=== PATIENT | male | born 1940 | race Caucasian/White ===

== ENCOUNTER 2017-09-17 13:04 | Emergency (ER) | payer MEDICARE, OTHER, SELFPAY ==
[2017-09-17 13:05] VITALS: BP 134/80; PULSE 86; RESP 16; TEMP 36.8; O2SAT 97; BMI 27.3
--- NOTE | 2017-09-17 13:19 | RAD_ITS ---
STUDY: X-RAY CHEST REASON FOR EXAM: Male, 77 years old. Left-sided chest pain. TECHNIQUE: Single AP portable view of the chest. COMPARISON: Prior comparison studies are not available for review at this time. FINDINGS: Cardiac monitoring leads are present. The lungs are underexpanded with obscuration of lung bases. Bronchovascular markings are mildly prominent in both lungs. There is no demonstrated pleural abnormality. There is mild cardiac enlargement. Normal mediastinum and nain. Normal visualized pulmonary arteries. There is atherosclerotic calcification of the aortic arch with tortuosity. There are diffuse degenerative changes of the visualized thoracic spine. Normal visualized ribs, clavicles, and shoulders. There is no demonstrated abnormality of the visualized soft tissue structures of the upper abdomen. RAD/Chest 1 View (Portable) IMPRESSION: Mild cardiomegaly. Electronically Signed: Hollie Hirsch MD at 14:15 EST , Service support ,
--- NOTE | 2017-09-17 13:19 | EKG12_ITS ---
Test Reason : CP Blood Pressure : / mmHG Vent. Rate : 076 BPM Atrial Rate : 076 BPM P-R Int : 200 ms QRS Dur : 098 ms QT Int : 356 ms P-R-T Axes : 028 -28 000 degrees QTc Int : 400 ms Normal sinus rhythm Normal ECG Confirmed by GUILLERMO LUCAS, TORIE ([id number]), photograph editor FRANCIA DOTY ([id number]) on 09/20/2017 1:47:05 PM Referred By: TERESITA Confirmed By:TORIE LI MD
[2017-09-17 13:21] VITALS: O2SAT 99
[2017-09-17 13:30] LABS: Absolute Neutrophil Count 8.2 X10^3/uL (2.0-7.7); Basophil# 0.02 X10^3/uL; Basophil% 0.2 % (0-1); Eosinophil# 0.24 X10^3/uL; Eosinophils% 2.2 % (0-5); Hematocrit 38.8 % (40-54); Hemoglobin 13.4 g/dl (13.0-16.5); Lymphocyte % 12.1 % (19-41); Mean Corp Hgb Conc 34.5 g/gl (32-36); Mean Corpuscular Hgb 30.7 pg (27.0-32.0); Mean Platelet Vol. 10.2 fl (6.2-12.0); Monocyte% 8.4 % (0-10); Neutrophil # 8.22 X10^3/uL (2.7-7.7); Neutrophil % 76.6 % (47-70); Platelet Count 156 K/mm3 (150-450); RBC Distribution Width CV 13.4 % (11.6-14.6); Red Blood Count 4.36 M/mm3 (4.6-6.2); White Blood Count 10.7 K/mm3 (4.4-11.0)
[2017-09-17 13:32] LABS: POSITIVE COUNT NO; POSITIVE DIFFERENTIAL NO; POSITIVE MORPHOLOGY NO
[2017-09-17 13:48] LABS: Anion Gap 10 (5-15); BUN 26 mg/dL (7-18); BUN/Creat Ratio 18.4 RATIO (10-20); Chloride 99 mmol/L (98-107); Creatinine, Serum 1.41 mg/dL (0.70-1.30); EST Glomerular Filtration Rate 52 mL/min (>60); Est Glom Filt Rate - Afr Amer 63 mL/min (>60); Estimated Creatinine Clearance 43.87 ml/min; Glucose 114 mg/dL (74-106); Potassium 4.1 mmol/L (3.5-5.1); Sodium Level 137 mmol/L (136-145)
[2017-09-17] MEDS: Aspirin 81 MG TAB.CHEW 324 MG PO (13:58)
[2017-09-17 14:00] VITALS: BP 127/78; PULSE 70; RESP 18; O2SAT 99
--- NOTE | 2017-09-17 14:04 | ED.VISSUMM ---
- ER Visit Summary Date of Service: 09/17/17 Chief Complaint: Chest pain History of Present Illness: The patient is a [address] Zaheer Jeffries III. He reports he has chest pain that began a day and a half ago. It is an intermittent dull pain that is brought on by movement of his head or arm. For example, he states that he had pain today while he was brushing his teeth. It is not brought on by exertion. Is relieved by not moving his head or arm. He denies any associated nausea, vomiting, diaphoresis, or shortness of breath. He denies any recent trauma. No fall, MVA, or change in activity. Physical Examination: Vitals: Stable. Afebrile. General: Well-nourished and well-developed. Head: Normocephalic atraumatic. Neck: Supple, no lymphadenopathy. No JVD. Nontender. Cardiovascular: Regular rate and rhythm. No murmurs. Respiratory: No respiratory distress. Clear to auscultation bilaterally. It is nontender. I am unable to reproduce his pain. Abdominal: Soft, nontender, nondistended, normal bowel sounds. No guarding, rebound, or peritoneal signs. Back: Nontender. Extremities: Nontender, no edema. Skin: Normal color, no rash. Neurologic: Alert and oriented ?3. Cranial nerves II through XII are intact. Normal strength and sensation. Psych: Normal affect. Test Results: EKG is sinus at 76 and unchanged from 2006. Troponin is negative. Chem-7 is more for BUN of 26, creatinine 1.41, glucose 114. CBC is marked for hematocrit of 38.8 and segment neutrophils of 77. Chest x-ray shows cardiomegaly and a poor inspiration. Emergency Department Course and Treatment: Patient was treated with aspirin and is resting comfortably. I had a prolonged discussion with him about the fact that he could have coronary disease given his age, but that I do not feel that is the source of his chest pain today. Feels well and would like to go home. Treatment Plan: Patient will be discharged instructions to follow-up with Dr. Echavarria as soon as possible. Return to the emergency department for any worsening or change in the character of his pain. Disposition: To home in improved and stable condition. Impression: 1. Atypical chest pain. 2. INÉS score of 1. This note was generated with [employer] dictation software. It may contain incorrect words, spelling, and punctuation that were not noted in review of the chart prior to signing ED Disposition - Plan for ED Patient: Disposition: Home or Assisted Living Chief Complaint: Chest Pain Instructions: ED Chest Pain Atypical Unkn Cause Referrals: Zaheer Jeffries III, MD [Primary Care Provider] - 1-2 Days if not improving
[2017-09-17 14:19] VITALS: BP 113/74; PULSE 71; RESP 16; O2SAT 97
== END 2017-09-17 14:19 | disposition home or self-care (01) ==
LOC: ED 13:45
PROVIDERS: Emergency Provider Emergency Medicine; Family Provider Family Medicine; PCP Family Medicine
DX: R07.89 Other chest pain (principal); I10 Essential (primary) hypertension; Z79.82 Long term (current) use of aspirin; Z79.899 Other long term (current) drug therapy
CPT/HCPCS: 71045; 80048; 84484; 85025; 93005; 99285; A4216

== ENCOUNTER 2018-02-02 05:45 | Emergency (ER) | payer MEDICARE, OTHER, SELFPAY ==
[2018-02-02 05:46] VITALS: BP 166/90; PULSE 65; RESP 16; TEMP 36.4; O2SAT 97; BMI 28.9
--- NOTE | 2018-02-02 06:06 | CT_ITS ---
STUDY: CT ABDOMEN AND PELVIS WITHOUT CONTRAST REASON FOR EXAM: Male, 77 years old. Left groin pain RADIATION DOSAGE (If Supplied By Facility): CTDIvol = ( 9.79 ) mGy, DLP = ( 649.22 ) mGycm TECHNIQUE: Transaxial 2.5 mm images were obtained from the dome of the diaphragm to the symphysis pubis without oral contrast, and without intravenous contrast. Sagittal and coronal images were reconstructed. This examination is limited for the evaluation of gastrointestinal, solid organs and vascular structures due to the lack of intravenous and oral contrast. Individualized dose optimization techniques were used for this CT. COMPARISON: None. FINDINGS: Mild hyperinflation of lung bases. The visualized portions of the heart are within normal limits. There is decreased attenuation of the liver consistent with steatosis. Faint low-attenuation right hepatic lobe 1.3 x 1.2 cm not representing a cyst. There are surgical clips in the gallbladder fossa consistent with a prior cholecystectomy. Normal spleen. Mild fat replacement of pancreas gland. Normal bilateral adrenal glands. Left greater than right perirenal stranding and fluid. Bilateral mild renal cortical thinning. Cortical low-attenuation posterior right lower pole 1.8 x 2.2 cm measuring near water density. Exophytic low-attenuation 0.5 cm in the inferior pole is indeterminate. Mild left hydronephrosis with a proximal left ureteral calculus 0.3 cm at the level of L3-4 disc space. Normal remainder of the left ureter. There is a small hiatal hernia. Normal small intestine. There are multiple colonic diverticula consistent with diverticulosis. The appendix is visualized and appears normal. There is diffuse atherosclerotic calcification of the abdominal aorta, without a demonstrated aneurysm. Normal inferior vena cava. Normal retroperitoneum. Normal urinary bladder. There is enlargement of the prostate gland. There are small bilateral inguinal hernia containing adipose tissue. There are diffuse degenerative changes of the visualized spine. Foraminal and spinal canal stenosis L4-5, [address]/Abdomen/Pelvis without Cont IMPRESSION: Mild left hydronephrosis with proximal left ureteral calculus 0.3 cm. Mild renal involution. Right renal cyst, indeterminate low-attenuation right inferior renal pole, this would require ultrasound for verification. Hepatic steatosis. Focal low-attenuation right hepatic lobe is indeterminate. Assessment with ultrasound or contrast enhanced CT recommended with dynamic phase. Cholecystectomy. Prostate enlargement. Bilateral inguinal hernia containing fat. Mild arteriosclerosis, degenerative changes, lung bases hyperinflation, hiatal hernia and fat deposition into the pancreas felt to be chronic changes. Electronically Signed: Delia Whelan MD at 6:48 EDT , Service support ,
[2018-02-02 06:16] LABS: Mucous, Urine 0 SEEN /hpf (<or=2+); Squamous Epithelial Cells - UA 0 SEEN /hpf (0-5)
[2018-02-02] MEDS: Morphine 4 MG/ML Syringe IV ×2 (06:16→06:58)
[2018-02-02] MEDS: Ondansetron 4 MG/2 ML Vial IV (06:16)
[2018-02-02] MEDS: 0.9% Normal Saline 1,000 ML 1000 ML IV (06:16)
[2018-02-02 06:23] LABS: Absolute Lymphocyte Count 1.43 X10^3/ul (0.83-4.51); Absolute Neutrophil Count 8.1 X10^3/uL (2.0-7.7); Basophil# 0.02 X10^3/uL; Basophil% 0.2 % (0-1); Eosinophil# 0.11 X10^3/uL; Eosinophils% 1.1 % (0-5); Hematocrit 38.4 % (40-54); Hemoglobin 13.2 g/dl (13.0-16.5); Lymphocyte # 1.43 X10^3/ul (4.0); Lymphocyte % 13.9 % (19-41); Mean Corp Hgb Conc 34.4 g/gl (32-36); Mean Corpuscular Volume 90.1 fL (80-94); Mean Platelet Vol. 10.3 fl (6.2-12.0); Monocyte# 0.64 X10^3/uL; Monocyte% 6.2 % (0-10); Neutrophil # 8.05 X10^3/uL (2.7-7.7); Neutrophil % 78.3 % (47-70); Platelet Count 153 K/mm3 (150-450); RBC Distribution Width CV 13.7 % (11.6-14.6); RBC Distribution Width SD 44.2 fl (35.1-43.9); Red Blood Count 4.26 M/mm3 (4.6-6.2); White Blood Count 10.3 K/mm3 (4.4-11.0)
[2018-02-02 06:24] LABS: Color, Urine Yellow (Yellow); Glucose, Dipstick Normal (Normal); Ketone-Dipstick Negative (Negative); Leukocyte Esterase-Dipstick 500 /ul (Negative); Nitrite-Dipstick Negative (Negative); Occult Blood-Urine 150 /ul (Negative); Protein-Dipstick 30 mg/dl (Negative); Urine Bilirubin Dipstick 1 mg/dL (Negative); Urine Clarity Sl. Cloudy (Clear); Urine Urobilinogen Normal (Normal)
[2018-02-02 06:25] LABS: POSITIVE COUNT NO; POSITIVE DIFFERENTIAL NO; POSITIVE MORPHOLOGY NO
[2018-02-02 06:30] LABS: Bacteria RARE /hpf (None Seen); Red Blood Cells-Urine 0-5 SEEN /hpf (0-5); White Blood Cells 10-25 SEEN /hpf (0-5)
[2018-02-02 06:35] LABS: Anion Gap 6 (5-15); BUN 23 mg/dL (7-18); BUN/Creat Ratio 14.6 RATIO (10-20); Chloride 105 mmol/L (98-107); Creatinine, Serum 1.57 mg/dL (0.70-1.30); EST Glomerular Filtration Rate 46 mL/min (>60); Est Glom Filt Rate - Afr Amer 55 mL/min (>60); Glucose 110 mg/dL (74-106); Sodium Level 140 mmol/L (136-145)
[2018-02-02] MEDS: Ceftriaxone 1 GM/50 ML BAG IV (06:59)
--- NOTE | 2018-02-02 07:06 | ED.VISSUMM ---
- ER Visit Summary Date of Service: 02/02/18 Chief Complaint: Left groin pain possible kidney stone History of Present Illness: The patient is a 77 M who presents with left groin pain and is concerned it may be related to a kidney stone. He has a history of kidney stones remotely he states is 20 years ago. He began to have left lower abdominal groin pain about 4 hours prior to presentation. His pain is dull. It waxes and wanes. It was initially 8 out of 10. He took tramadol prior to presentation here and had improvement to about 5 out of 10. He denies fevers nausea vomiting diarrhea dysuria frequency urgency. Physical Examination: Afebrile vitals unremarkable Moist mucous membranes Heart regular rate and rhythm Lungs are clear Abdomen soft nondistended he does have left lower quadrant tenderness without guarding without rebound Normal examination Alert Test Results: CBC unremarkable. BMP notable for creatinine 1.57. Urinalysis shows 500 leukocyte esterase 150 blood 10-25 WBCs and rare bacteria. CT of the abdomen and pelvis shows mild left hydronephrosis with a 3 mm proximal left ureteral calculus. Emergency Department Course and Treatment: Patient was treated with IV fluids morphine and Zofran here. Given evidence of infection in his urine he was given IV Rocephin. Patient was discussed with Dr. Rodriguez. Given that the patient has no fever tachycardia leukocytosis or vomiting he did feel the patient could be given oral antibiotics and follow-up as an outpatient. Patient instructed on signs and symptoms to monitor for and specific conditions which should prompt return here to the emergency department for reevaluation. His pain is well controlled at this time. He was given prescriptions for Percocet and Cipro. Patient discharged home in good condition. Treatment Plan: [] Disposition: Discharge Impression: Ureterolithiasis UTI This note was generated with [employer] dictation software. It may contain incorrect words, spelling, and punctuation that were not noted in review of the chart prior to signing ED Disposition - Plan for ED Patient: Chief Complaint: Complaint Referrals: Zaheer Jeffries III, MD [Primary Care Provider] -
--- NOTE | 2018-02-02 07:11 | ED.DEP ---
ED Disposition - Plan for ED Patient: Chief Complaint: Complaint Instructions: ED Stone Renal W Colic, ED UTI Cystitis Male Prescriptions: Oxycodone HCl/Acetaminophen [Percocet 5/325] 1 tab PO Q6H PRN PRN 3 Days #12 tab PRN Reason: Pain Ciprofloxacin [Cipro] 500 mg PO BID #14 tab Referrals: Zaheer Jeffries III, MD [Primary Care Provider] - José Miguel Rodriguez MD [STAFF PHYSICIAN] -
[2018-02-02 07:36] VITALS: BP 128/77; PULSE 69; RESP 15; O2SAT 97
== END 2018-02-02 07:38 | disposition home or self-care (01) ==
LOC: ED 06:28
PROVIDERS: Emergency Provider Emergency Medicine; Family Provider Family Medicine; PCP Family Medicine
DX: N13.2 Hydronephrosis with renal and ureteral calculous obstruction (principal); N39.0 Urinary tract infection, site not specified; I10 Essential (primary) hypertension; Z87.442 Personal history of urinary calculi; Z79.82 Long term (current) use of aspirin; Z79.899 Other long term (current) drug therapy
CPT/HCPCS: 74176; 80048; 81001; 85025; 96361; 96365; 96375; 96376; 99284; J7030; A4216

== ENCOUNTER → 2018-02-03 07:17 | Outpatient (CLI) | payer MEDICARE, OTHER, SELFPAY ==
--- NOTE | 2018-02-03 07:45 | MRI_ITS ---
STUDY: MRI LUMBAR SPINE WITHOUT CONTRAST REASON FOR EXAM: Male, 77 years old. Radiculopathy. LBP, right hip and leg pain, right calf swelling. TECHNIQUE: Standardized fat and water weighted pulse sequences were obtained in the sagittal and axial planes. COMPARISON: None FINDINGS: T12-L1: There is mild disc space narrowing and endplate spondylosis. There is no significant central canal or foraminal stenosis. Normal lumbar lordosis. There is no substantial scoliosis. Normal conus medullaris that terminates at the T12/L1 L1-2: There is mild disc space narrowing and endplate spondylosis. There is a mild disc bulge and facet hypertrophy with mild central canal stenosis. There is minimal bilateral foraminal stenosis. L2-3: There is mild disc space narrowing and endplate spondylosis. There is a mild disc bulge and hypertrophic arthropathy with moderate central canal stenosis. There is minimal right and mild left foraminal stenosis. L3-4: There is minimal disc space narrowing and endplate spondylosis. There is mild disc bulge and hypertrophic facet arthropathy with moderate central stenosis. There is minimal bilateral foraminal stenosis. L4-5: There is severe disc space narrowing and endplate spondylosis. There is a disc osteophyte complex and facet arthropathy with severe central canal stenosis. There is mild right and minimal left foraminal stenosis. L5-S1: There is moderate disc space narrowing and endplate spondylosis. There is a disc osteophyte complex and facet arthropathy with mild central canal stenosis. There is mild right and moderate left foraminal stenosis. Normal visualized sacral ala. Normal visualized paraspinous soft tissue structures. MRI/Spine Lumbar (Routine) IMPRESSION: L2/L3: Moderate central canal stenosis. L3/L4: Moderate central canal stenosis. L4/L5: Severe central canal stenosis. L5/S1: Moderate left foraminal stenosis. Electronically Signed: Bernadette Youngblood MD at 11:06 EDT Tel , Service support ,
== END ==
PROVIDERS: Family Provider Family Medicine; PCP Family Medicine; Visit Provider Nurse Practitioner Family
DX: M54.17 Radiculopathy, lumbosacral region (principal); M46.96 Unspecified inflammatory spondylopathy, lumbar region; M47.816 Spondylosis without myelopathy or radiculopathy, lumbar region; M47.817 Spondylosis without myelopathy or radiculopathy, lumbosacral region; M51.36 Other intervertebral disc degeneration, lumbar region; M54.5 Low back pain
CPT/HCPCS: 72148

== ENCOUNTER → 2018-02-05 13:55 | Outpatient (CLI) | payer MEDICARE, OTHER, SELFPAY ==
--- NOTE | 2018-02-05 13:58 | RAD_ITS ---
STUDY: X-RAY - ABDOMEN/PELVIS REASON FOR EXAM: Male, 77 years old. Left kidney stone. TECHNIQUE: Two AP supine views of the abdomen and pelvis. COMPARISON: CT abdomen and pelvis February 02, 2018. FINDINGS: Non-visualized lung bases. There is an unremarkable bowel gas pattern. There is no demonstrated free abdominal air. The visualized liver, spleen and kidneys are grossly normal in size and morphology. The left ureteral stone seen on CT is not apparent here. Normal soft tissue structures. There are degenerative changes of the visualized lower thoracic spine, the lowermost lumbar facet joints, as well as the bilateral sacroiliac joints. RAD/Abdomen Single View IMPRESSION: 1. Left ureteral stone noted by CT is not apparent on this exam. 2. Nonspecific bowel gas pattern. Electronically Signed: Raimundo Hunter MD at 15:30 EDT , Service support ,
--- NOTE | 2018-02-05 14:39 | EKG12_ITS ---
Test Reason : PREOP Blood Pressure : / mmHG Vent. Rate : 054 BPM Atrial Rate : 054 BPM P-R Int : 192 ms QRS Dur : 086 ms QT Int : 416 ms P-R-T Axes : 032 -37 002 degrees QTc Int : 394 ms Sinus bradycardia Left axis deviation Abnormal ECG Confirmed by GUILLERMO LUCAS, TORIE ([id number]), photo editor FRANCIA DOTY ([id number]) on 02/06/2018 2:15:36 PM Referred By: José Miguel Rodriguez Confirmed By:TORIE LI MD
== END ==
PROVIDERS: Family Provider Family Medicine; PCP Family Medicine; Visit Provider Urology
DX: N20.1 Calculus of ureter (principal)
CPT/HCPCS: 74018; 93005

== ENCOUNTER 2018-02-05 18:52 | Inpatient (IN) | payer MEDICARE, OTHER, SELFPAY ==
[2018-02-05 18:57] VITALS: BP 132/89; PULSE 72; RESP 18; TEMP 36.7; O2SAT 94; BMI 28.2
[2018-02-05] MEDS: 0.9% Normal Saline 1,000 ML 1000 ML IV (19:46)
[2018-02-05] MEDS: Morphine 4 MG/ML Syringe IV (19:46)
[2018-02-05] MEDS: Ondansetron 4 MG/2 ML Vial IV (19:46)
[2018-02-05 19:49] LABS: Bacteria 0 SEEN /hpf (None Seen); Mucous, Urine 0 SEEN /hpf (<or=2+); Red Blood Cells-Urine 0 SEEN /hpf (0-5); Squamous Epithelial Cells - UA 0 SEEN /hpf (0-5); White Blood Cells 0 SEEN /hpf (0-5)
[2018-02-05 19:57] LABS: Absolute Lymphocyte Count 0.97 X10^3/ul (0.83-4.51); Absolute Neutrophil Count 11.6 X10^3/uL (2.0-7.7); Basophil# 0.02 X10^3/uL; Basophil% 0.1 % (0-1); Eosinophil# 0.03 X10^3/uL; Eosinophils% 0.2 % (0-5); Hematocrit 38.5 % (40-54); Hemoglobin 13.1 g/dl (13.0-16.5); Lymphocyte # 0.97 X10^3/ul (4.0); Lymphocyte % 7.3 % (19-41); Mean Corpuscular Hgb 30.8 pg (27.0-32.0); Mean Corpuscular Volume 90.6 fL (80-94); Mean Platelet Vol. 10.3 fl (6.2-12.0); Monocyte# 0.74 X10^3/uL; Monocyte% 5.5 % (0-10); Neutrophil # 11.56 X10^3/uL (2.7-7.7); Neutrophil % 86.7 % (47-70); Platelet Count 159 K/mm3 (150-450); RBC Distribution Width CV 13.7 % (11.6-14.6); RBC Distribution Width SD 44.8 fl (35.1-43.9); Red Blood Count 4.25 M/mm3 (4.6-6.2); White Blood Count 13.4 K/mm3 (4.4-11.0)
[2018-02-05 20:06] LABS: Anion Gap 9 (5-15); BUN 24 mg/dL (7-18); BUN/Creat Ratio 13.9 RATIO (10-20); Calcium,Total 9.7 mg/dL (8.5-10.1); Chloride 99 mmol/L (98-107); Color, Urine Yellow (Yellow); Creatinine, Serum 1.73 mg/dL (0.70-1.30); EST Glomerular Filtration Rate 41 mL/min (>60); Est Glom Filt Rate - Afr Amer 49 mL/min (>60); Estimated Creatinine Clearance 35.76 ml/min; Glucose 126 mg/dL (74-106); Glucose, Dipstick Normal (Normal); Ketone-Dipstick 5 mg/dl (Negative); Leukocyte Esterase-Dipstick Negative /ul (Negative); Nitrite-Dipstick Negative (Negative); Occult Blood-Urine 25 /ul (Negative); Potassium 4.1 mmol/L (3.5-5.1); Protein-Dipstick 15 mg/dl (Negative); Sodium Level 136 mmol/L (136-145); Urine Bilirubin Dipstick Negative (Negative); Urine Clarity Clear (Clear); Urine Urobilinogen Normal (Normal)
[2018-02-05 20:09] LABS: POSITIVE COUNT NO; POSITIVE DIFFERENTIAL NO; POSITIVE MORPHOLOGY NO
--- NOTE | 2018-02-05 21:12 | ED.VISSUMM ---
- ER Visit Summary Date of Service: 02/05/18 Chief Complaint: Flank pain History of Present Illness: The patient is a 77 M who I saw last week and diagnosed with a left-sided kidney stone. He was sent home on analgesics. He did see Dr. Stefania Mosqueda in the office and is scheduled for surgery on Monday if his symptoms are not improving. He states that his symptoms were relatively well controlled with Percocet however his pain has been increasing. Today's pain is uncontrolled and he also had one episode of nonbloody nonbilious emesis. Denies any fevers. Physical Examination: Afebrile vitals are unremarkable Patient does appear uncomfortable Heart regular rate and rhythm Lungs clear Abdomen soft Patient does have some left lower quadrant abdominal tenderness Alert Test Results: Labs notable for white blood cell count 13.4. Creatinine is 1.73. UA shows 25 blood otherwise normal. Emergency Department Course and Treatment: Patient was treated here with IV fluids morphine Zofran. He has had about 50% improvement of the symptoms. Given his uncle controlled symptoms despite Percocet home he was discussed with his urologist and admitted. Treatment Plan: [] Disposition: Admit Impression: Ureterolithiasis This note was generated with [employer] dictation software. It may contain incorrect words, spelling, and punctuation that were not noted in review of the chart prior to signing ED Disposition - Plan for ED Patient: Chief Complaint: Flank Pain
[2018-02-05 21:58] VITALS: BP 156/78; PULSE 67; RESP 16; O2SAT 98
[2018-02-05 22:16] VITALS: BP 163/78; PULSE 71; RESP 16; O2SAT 96
[2018-02-05 22:32] VITALS: BMI 28.0
[2018-02-05 22:33] VITALS: BP 162/78; PULSE 66; RESP 18; TEMP 36.9; O2SAT 98
[2018-02-05 22:50] VITALS: BMI 28.0
[2018-02-05] MEDS: 0.9% Normal Saline 1,000 ML 125 ML IV (23:33)
[2018-02-05] MEDS: Morphine 2 MG/ML Syringe IV (23:43)
[2018-02-06] VITALS (15 sets, daily range): BP systolic 112–180; BP diastolic 60–99; PULSE 61–81; RESP 16–24; TEMP 36.3–38.3; O2SAT 88–99; BMI 28.0
--- NOTE | 2018-02-06 | IMM_PTH ---
PATIENT: [place] LOC: MS2 U#:[id number] AGE/SX: 77/M [place] [facility] [place]: Dr. Tommy Munson MD : 1940 BED: 1 DIS: 02/09/2018 SPEC #: [id number] RECD: 02/07/18 12:44 STATUS: SOUT REQ #: [id number] VASILIY: 02/06/18 00:[address]: José Miguel Rodriguez DEPT: IMMUNOHISTOCHEMISTRY RECD BY: Maryanne Mcpherson ENTERED: 02/07/18 12:45 SP TYPE: IMMUNO OTHR DR: MD Dr. Kevin Cardozo DO Dr. Frank A Cebul III, MD Dr. Juan Miguel Proano, MD Tissues: A - Prostate, NOS Procedures: CK20 (add) PSA (add) PSAP (add) CK7 (initial) Comments: @ Ordering doctor for CK7 edited from to @ by HORACE at 02/07/18 1253 @ Ordering doctor for CK20. edited from to @ by HORACE at 02/07/18 1253 @ Ordering doctor for PSA. edited from to @ by HORACE at 02/07/18 1253 @ Ordering doctor for PSAP. edited from to @ by HORACE at 02/07/18 1253 @ Submitting doctor edited from to @ by HORACE at 02/07/18 1253 PHYSICIAN & INSTIT[facility] [address] [address] SPECIMEN INFORMATION: Tissue Source: A ? Prostate urethra biopsy Clinical Info: Left ureteral calculi Specimen Number: [id number] CPT code: 45101, 44539 x3 METHODOLOGY: Deparaffinized sections of prefer/formalin-fixed tissue or PAP/DQ stained slides are incubated with monoclonal/polyclonal antibodies/oligonucleotide probes. Localization is made via biotin free immunoperoxidase method. Appropriate controls are performed and reacted as expected. Results on target cell population are indicated in the following table: RESULTS: ANTIBODY / CLONE RESULT Block A CK7 (OV-TL12/30) positive, focal CK20 (KS20.8) negative PSA (ER-PR8) positive PSAP (PASE/4LJ) positive These tests were developed and their performance characteristics determined by [facility]. They may not have been cleared or approved by the U.S. Food and Drug Administration. The FDA has determined that such clearance or approval is not necessary. INTERPRETATION: A. Prostate urethra, biopsy: Consistent with benign prostatic glandular tissue. AM:stacie 02/08/18
--- NOTE | 2018-02-06 | MISC_PTH ---
PATIENT: [place] LOC: MS2 U#:[id number] AGE/SX: 77/M [place] [facility] [place]02/06/[address]: Dr. Tommy Munson MD : 1940 BED: 1 DIS: 02/09/2018 SPEC #: [id number] RECD: 02/06/18 14:23 STATUS: BELEN JENNIFER #: [id number] VASILIY: 02/06/18 00:[address]: José Miguel Rodriguez DEPT: SURGICAL PATHOLOGY RECD BY: George Hammonds ENTERED: 02/06/18 14:24 SP TYPE: MISC IGNACIO DR: Dr. Zaheer Jeffries III, MD Tissues: A - Urethra, NOS B - CALCULI Procedures: Surgery Specimen Level I Surgery Specimen Level IV HEADER OPERATION: Cysto, ureteroscopy, retro, extraction of stone, urethral biopsy PRE-OP DIAGNOSIS: Left ureteral calculi TISSUE SUBMITTED: A ? Prostate urethra biopsy, B ? Left urethral stone (stone for analysis) MICROSCOPIC DIAGNOSIS A. Prostate urethra, biopsy: Benign prostatic parenchymal tissue. See comment. B. Left ureteral stone, removal: Unremarkable calculus (gross diagnosis only). AM:stacie 02/07/18 COMMENT A. The specimen contains prostatic glandular parenchymal tissue with focal calcifications. Clinical correlation is suggested. Immunohistochemistry ([id number]) supports the above diagnosis. MICROSCOPIC DESCRIPTION Slides are reviewed. GROSS DESCRIPTION A - Received in fixative is one container labeled with the patient's name and designated prostatic urethral biopsy. The specimen consists of one irregular fragment of light collins soft tissue that measures 0.2 x 0.1 x <0.1 cm. The specimen is totally submitted in one cassette. B - Received without fixative labeled with the patient name and designated left urethral stone is a specimen that consists of an irregular fragment of dark collins calculus measuring 0.5 x 0.2 x 0.2 cm. The specimen is totally submitted for chemical stone analysis. / AM:stacie 02/06/18 TC:5 CPT: 09307, 90968
[2018-02-06] MEDS: Morphine 2 MG/ML Syringe IV ×5 (01:49→20:07)
--- NOTE | 2018-02-06 06:50 | PCM.HP.STD ---
Problem List (1) Left ureteral calculus Status: Acute History of Present Illness Date of Admission: 02/06/18 Chief Complaint: Left ureteral calculi The patient is a 77 year old male who is seen in the office for a small left ureteral calculi we are planning surgery intervention this coming Monday however he came back to the emergency room with severe pain now his pain is under control no more nausea vomiting but he does not want to go home will add him onto the schedule for tomorrow as a add on for left ureteroscopy laser lithotripsy of stone and stent placement Past Medical History Allergies lisinopril Adverse Reaction (Verified 02/05/18 18:56) Other COUGH Sulfa (Sulfonamide Antibiotics) Adverse Reaction (Verified 02/05/18 18:56) Itching Home Medications: Ambulatory Orders Medication Instructions Recorded Aspirin [Aspirin, Baby] 81 mg PO DAILY 09/17/17 Atenolol [Tenormin (Beta Seth)] 50 mg PO DAILY 09/17/17 Hydrochlorothiazide [Hctz] 25 mg PO DAILY 09/17/17 Naproxen 500 mg PO BID PRN PRN 02/02/18 Oxycodone HCl/Acetaminophen 1 tab PO Q6H PRN PRN 3 Days #12 tab 02/02/18 [Percocet 5/325] Terazosin HCl 10 mg PO QHS 02/02/18 Ciprofloxacin [Cipro] 500 mg PO BID 02/05/18 Surgical History: noncontributory Psychiatric History: No pertinent psych hx Lives: Spouse/ Significant Other Smoking Status: Never smoker Tobacco Use: Non-smoker Alcohol: None Drugs: None Review of Systems Constitutional: Denies: Chills, Fever, Weight Change HEENT: Denies: Head Aches, Sinus Congestion, Sinus Drainage Cardiovascular: Denies: Chest Pain, Palpitations Respiratory: Denies: Cough, Shortness of breath at rest, Sputum production Gastrointestinal: Reports: Abdominal Pain. Denies: Nausea, Vomiting Genitourinary: Reports: Hematuria. Denies: Dysuria Musculoskeletal: Denies: Joint Pain, Joint Tenderness Skin: Denies: Rash, Wounds Neurological: Denies: Numbness, Tingling, Focal weakness Psychiatric: Denies: Anxiety, Depression, Homicidal Ideations, Suicidal Ideations Hematologic/ Lymphatic: Denies: Easy Bruising, Easy Bleeding VTE Information - Inpt Only VTE Present on Admission: No VTE Mechan Device Prophylaxis: SCD's Patient Problems: Active and Suspected Problems Left ureteral calculus (Acute) - Physical Exam General: Alert, Oriented x3, Cooperative HEENT: Atraumatic, PERRLA, EOMI, Normocephalic Neck: Supple, No JVD, Negative Carotid Bruits Lungs: Clear to auscultation, Normal air movement Cardiovascular: Regular rate, No murmurs Abdomen: Bowel Sounds Present, Soft, Non Tender Extremities: No edema, Capillary Refill Less than 3 Seconds Skin: No rashes, No breakdown Musculoskeletal: No Tenderness to Palpation of Joints or Extremities Neurological: Cranial nerves II-XII grossly intact Psych/Mental Status: Normal Affect, Appropriate Vital Signs Temp Pulse Resp BP Pulse Ox 98.6 F 61 16 158/71 H 99 02/06/18 04:44 02/06/18 04:44 02/06/18 04:44 02/06/18 04:44 02/06/18 04:44 Oxygen Delivery Method Room Air Weight: 86 kg Body Mass Index (BMI) 28.0 Intake and Output for Last 24 Hours 02/04/18 02/05/18 02/06/18 23:59 23:59 23:59 Intake Total 639 / 639 Output Total 150 / 150 850 / 850 Balance -150 / -150 -211 / -211 Laboratory Tests Past 24 Hrs 02/06/18 06:06 Sodium Pending Potassium Pending Chloride Pending Carbon Dioxide Pending Anion Gap Pending BUN Pending Creatinine Pending Est GFR (MDRD) Af Amer Pending Est GFR (MDRD) Non-Af Pending BUN/Creatinine Ratio Pending Glucose Pending Calcium Pending Assessment/Plan All Active Problems Left ureteral calculus (Acute) 77-year-old male admitted for intractable pain from a kidney stone quite small but has not been able to pass it so regular diet today and a month for the schedule for tomorrow for left ureteroscopy laser lithotripsy of stone and stent placement.
[2018-02-06 07:00] LABS: Anion Gap 7 (5-15); BUN 22 mg/dL (7-18); BUN/Creat Ratio 15.6 RATIO (10-20); Calcium,Total 8.4 mg/dL (8.5-10.1); Chloride 106 mmol/L (98-107); Creatinine, Serum 1.41 mg/dL (0.70-1.30); EST Glomerular Filtration Rate 52 mL/min (>60); Est Glom Filt Rate - Afr Amer 63 mL/min (>60); Estimated Creatinine Clearance 43.87 ml/min; Glucose 97 mg/dL (74-106); Sodium Level 141 mmol/L (136-145)
[2018-02-06] MEDS: 0.9% Normal Saline 1,000 ML 125 ML IV ×3 (07:58→19:04)
[2018-02-06] MEDS: Atenolol 50 MG Tablet PO (09:53)
[2018-02-06] MEDS: Cefazolin 2 GM in 0.9% Normal Saline 100 ML IV (11:12)
--- NOTE | 2018-02-06 11:44 | PCM.OPRPT ---
Problem List (1) Left ureteral calculus Status: Acute Report of Operation Date of Procedure: 02/06/18 Pre-Operative Diagnosis: Left ureteral calculi Post-Operative Diagnosis: Same and urethral polyp Surgery/Procedure Performed:: Cystoscopy, left retrograde pyelogram, balloon dilation of the left ureter, left ureteroscopy extraction of stone, no stent, biopsy of prostatic urethra Polyp. Description of Surgical Findings:: 77-year-old male taken back to the operating room at the smooth induction of general anesthesia he was placed supine on the table, the penis testicles were prepped and draped in usual sterile fashion, went into the bladder with a 21 Lithuanian rigid cystourethroscope, the entire length the urethra is normal sphincter is normal when I got to the verumontanum there was a papillary soft looking polyp on top of the verumontanum difficult to tell this is normal anatomy or pathology so decided to proceed with a biopsy this at the end of the case. I then went into the bladder identified the left ureteral orifice use a Pollack catheter Glidewire advanced a wire up on the left side could feel the wire hit the stone and then I balloon dilated the distal left ureter with a 12 Lithuanian 10 cm balloon dilator, after balloon dilating the distal ureter then I went in with a ureteroscope was able to get past the stone went all the way to the kidney inspected the upper pole midpole lower pole did a retrograde pyelogram no other stones are seen work my way all the way down and then I could see feel the stone as it was along the ureter and then we extracted the stone as I came out with the ureteroscope from the ureter did not have to use the basket, then after extracting the stone and we flushed the stone out of the bladder it was sent off as a specimen I then switched over to the 30 and 70? lens inspected the bladder no tumors or stones are seen within the bladder trigone is normal left and right ureteral orifice normal, I then pulled back into the prostatic urethra did a biopsy of this polyp on top of the verumontanum, and then drain the bladder patient has anesthetic was reversed plan to see the patient back in follow-up in a few weeks to review the biopsy for the verumontanum and the stone analysis. No stent was placed. Type of Anesthesia:: General Drains: none - Admit VTE Documentation VTE Present on Admission: No VTE Mechan Device Prophylaxis: SCD's VTE Pharm Prophylaxis ordered?: No Reason prophylaxis not ordered:: Treatment Not Indicated
[2018-02-06] MEDS: Doxazosin 4 MG Tablet 8 MG PO ×2 (13:33→13:34)
[2018-02-06] MEDS: Aspirin 81 MG TAB.CHEW PO (13:34)
[2018-02-06] MEDS: hydroCHLOROthiazide 25 MG Tablet PO (13:34)
--- NOTE | 2018-02-06 13:50 | CASEMGMT ---
See RN CM Assessment Link. Pt denies use of DME or assistance needs. Is independent, ambulatory. is able to assist with f/u transportation. Plan is for dc home tomorrow. Devora MENDIETA RN ACM
[2018-02-06] MEDS: Lactulose 20 GM/30 ML UDC 10 GM PO (15:14)
--- NOTE | 2018-02-06 16:09 | RAD_ITS ---
STUDY: X-RAY CHEST REASON FOR EXAM: Male, 77 years old. Increased shortness of breath. TECHNIQUE: Single AP portable view of the chest. COMPARISON: September 17, 2017. FINDINGS: The lungs are hypoexpanded. There is patchy infiltrates at both lung bases. There is no demonstrated pleural abnormality. The heart remains mildly enlarged. Normal mediastinum and nain. Is mild central vascular prominence. Normal visualized aortic arch and descending thoracic aorta. The thoracic spine is obscured by the mediastinum. Normal visualized ribs, clavicles, and shoulders. There is no demonstrated abnormality of the visualized soft tissue structures of the upper abdomen. RAD/Chest 1 View (Portable) IMPRESSION: Cardiomegaly with bibasilar infiltrates. Electronically Signed: Jens Linares DO at 20:50 EDT Tel [phone], Service support ,
--- NOTE | 2018-02-06 16:43 | PCM.CONS.GEN ---
Problem List (1) Dyspnea Status: Acute (2) Sepsis Status: Acute (3) UTI (urinary tract infection) Status: Acute Reason for Consult Date of Consultation: 02/06/18 Reason for Consultation: Dyspnea and Rigors History of Present Illness: The patient is a 77 year old M who presents with a kidney stone. Patient had been diagnosed with it on the where he had mild left hydronephrosis with a proximal left ureteral calculus of 0.3 cm. Patient was also found to have a urinary tract infection and discharged with follow-up with Dr. Rodriguez. Patient was not feeling better and presented again on the . Patient was admitted to the urology service and today underwent cystoscopy with left-sided pyelogram and balloon dilation of the left ureter and extraction of stone. Afterwards patient was having [place] and did have dyspnea. The hospitalist service was consulted because of the dyspnea. Patient's oxygen did drop transiently down to 88%. Patient's complaint right now is feeling cold. Patient still does have left flank pain at this time. She has a history of kidney stones which according to the is counting at 8 this time. [] Past Medical History Medical History: Medical History (Last Updated 02/06/18 @ 16:47 by Kevin Martinez DO) Kidney stone N20.0 HTN (hypertension) I10 Allergies lisinopril Adverse Reaction (Verified 02/05/18 18:56) Other COUGH Sulfa (Sulfonamide Antibiotics) Adverse Reaction (Verified 02/05/18 18:56) Itching Home Medications: Ambulatory Orders Medication Instructions Recorded Aspirin [Aspirin, Baby] 81 mg PO DAILY 09/17/17 Atenolol [Tenormin (Beta Seth)] 50 mg PO DAILY 09/17/17 Hydrochlorothiazide [Hctz] 25 mg PO DAILY 09/17/17 Naproxen 500 mg PO BID PRN PRN 02/02/18 Oxycodone HCl/Acetaminophen 1 tab PO Q6H PRN PRN 3 Days #12 tab 02/02/18 [Percocet 5/325] Terazosin HCl 10 mg PO QHS 02/02/18 Ciprofloxacin [Cipro] 500 mg PO BID 02/05/18 Surgical History: noncontributory Psychiatric History: No pertinent psych hx Lives: Spouse/ Significant Other Smoking Status: Never smoker Tobacco Use: Non-smoker Alcohol: None Drugs: None - *Family History Maternal History Items: - - no heart disease Review of Systems Constitutional: Reports: Chills. Denies: Anorexia, Fever Eyes: Denies: Blurred vision, Double vision HEENT: Denies: Head Aches, Sinus Congestion, Sinus Drainage Cardiovascular: Denies: Chest Pain, Palpitations Respiratory: Reports: Cough, Shortness of Breath Gastrointestinal: Reports: Abdominal Pain. Denies: Diarrhea Genitourinary: Denies: Dysuria, Frequency, Hematuria Musculoskeletal: Denies: Joint Pain, Joint Tenderness Skin: Denies: Rash, Wounds Neurological: Denies: Numbness, Tingling, Focal weakness Psychiatric: Denies: Anxiety, Depression Endocrine: Denies: Change in Body Habitus, Heat/ Cold Intolerance Hematologic/ Lymphatic: Denies: Easy Bruising, Easy Bleeding, Hx of blood clot Comment: All review of systems are negative except as mentioned in the history of present illness and the other review of systems. Patient Problems: Active and Suspected Problems Left ureteral calculus (Acute) Dyspnea (Acute) Sepsis (Acute) UTI (urinary tract infection) (Acute) - Physical Exam General: Alert, Cooperative, No apparent distress HEENT: Atraumatic, Normocephalic Neck: No Nodes, Thyroid Normal Size and Texture Lungs: Clear to auscultation, No rhonchi, No wheeze, Diminished Cardiovascular: Regular rate, Regular Rhythm, Normal S1, Normal S2 Abdomen: Bowel Sounds Present, Soft, Non Tender Extremities: No edema, No Calf Tenderness Skin: No rashes, No breakdown Psych/Mental Status: Normal Affect, Appropriate Vital Signs Temp Pulse Resp BP Pulse Ox 36.4 C L 72 24 H 134/99 H 94 02/06/18 15:37 02/06/18 15:37 02/06/18 15:37 02/06/18 15:37 02/06/18 15:37 Oxygen Flow Rate (L/min) 2 Oxygen Delivery Method Nasal Cannula Assessment/Plan All Active Problems Left ureteral calculus (Acute) Dyspnea (Acute) Sepsis (Acute) UTI (urinary tract infection) (Acute) 1. Sepsis Secondary to urinary tract infection. Patient transiently got worse after 3. My feeling is that there may been some bacteria within the stone itself that may have been released with the procedure that may have caused transient worsening of symptoms. I agree with checking the blood cultures to ensure that there is no bacteremia I agree with the IV Cipro. We will adjust antibiotics accordingly based on results of blood cultures. Urine cultures were never performed during this admission nor the previous ER visits. 2. UTI Exacerbated due to the kidney stone Neck in order a urine culture because patient having already been on antibiotic low yield at this point in time. We just continue with the Cipro 3. Left-sided kidney stone Status post extraction by urology Still with left flank pain. Defer management to the urology service 4. Dyspnea Transient hypoxia Currently improved with oxygen Chest x-ray ordered As needed bronchodilators 5. DVT prophylaxis with SCDs Thank you for the consult. The hospitalist service will follow along since hospitalization Code Visit Inpatient E&M: 41118 Init Hosp L2
--- NOTE | 2018-02-06 16:53 | CON.PCM_ITS ---
Problem List (1) Dyspnea Status: Acute (2) Sepsis Status: Acute (3) UTI (urinary tract infection) Status: Acute Reason for Consult Date of Consultation: 02/06/18 Reason for Consultation: Dyspnea and Rigors History of Present Illness: The patient is a 77 year old M who presents with a kidney stone. Patient had been diagnosed with it on the where he had mild left hydronephrosis with a proximal left ureteral calculus of 0.3 cm. Patient was also found to have a urinary tract infection and discharged with follow-up with Dr. Rodriguez. Patient was not feeling better and presented again on the . Patient was admitted to the urology service and today underwent cystoscopy with left-sided pyelogram and balloon dilation of the left ureter and extraction of stone. Afterwards patient was having [place] and did have dyspnea. The hospitalist service was consulted because of the dyspnea. Patient's oxygen did drop transiently down to 88%. Patient's complaint right now is feeling cold. Patient still does have left flank pain at this time. She has a history of kidney stones which according to the is counting at 8 this time. [] Past Medical History Medical History: Medical History (Last Updated 02/06/18 @ 16:47 by Kevin Martinez DO) Kidney stone N20.0 HTN (hypertension) I10 Allergies lisinopril Adverse Reaction (Verified 02/05/18 18:56) Other COUGH Sulfa (Sulfonamide Antibiotics) Adverse Reaction (Verified 02/05/18 18:56) Itching Home Medications: Ambulatory Orders Medication Instructions Recorded Aspirin [Aspirin, Baby] 81 mg PO DAILY 09/17/17 Atenolol [Tenormin (Beta Seth)] 50 mg PO DAILY 09/17/17 Hydrochlorothiazide [Hctz] 25 mg PO DAILY 09/17/17 Naproxen 500 mg PO BID PRN PRN 02/02/18 Oxycodone HCl/Acetaminophen 1 tab PO Q6H PRN PRN 3 Days #12 tab 02/02/18 [Percocet 5/325] Terazosin HCl 10 mg PO QHS 02/02/18 Ciprofloxacin [Cipro] 500 mg PO BID 02/05/18 Surgical History: noncontributory Psychiatric History: No pertinent psych hx Lives: Spouse/ Significant Other Smoking Status: Never smoker Tobacco Use: Non-smoker Alcohol: None Drugs: None - *Family History Maternal History Items: - - no heart disease Review of Systems Constitutional: Reports: Chills. Denies: Anorexia, Fever Eyes: Denies: Blurred vision, Double vision HEENT: Denies: Head Aches, Sinus Congestion, Sinus Drainage Cardiovascular: Denies: Chest Pain, Palpitations Respiratory: Reports: Cough, Shortness of Breath Gastrointestinal: Reports: Abdominal Pain. Denies: Diarrhea Genitourinary: Denies: Dysuria, Frequency, Hematuria Musculoskeletal: Denies: Joint Pain, Joint Tenderness Skin: Denies: Rash, Wounds Neurological: Denies: Numbness, Tingling, Focal weakness Psychiatric: Denies: Anxiety, Depression Endocrine: Denies: Change in Body Habitus, Heat/ Cold Intolerance Hematologic/ Lymphatic: Denies: Easy Bruising, Easy Bleeding, Hx of blood clot Comment: All review of systems are negative except as mentioned in the history of present illness and the other review of systems. Patient Problems: Active and Suspected Problems Left ureteral calculus (Acute) Dyspnea (Acute) Sepsis (Acute) UTI (urinary tract infection) (Acute) - Physical Exam General: Alert, Cooperative, No apparent distress HEENT: Atraumatic, Normocephalic Neck: No Nodes, Thyroid Normal Size and Texture Lungs: Clear to auscultation, No rhonchi, No wheeze, Diminished Cardiovascular: Regular rate, Regular Rhythm, Normal S1, Normal S2 Abdomen: Bowel Sounds Present, Soft, Non Tender Extremities: No edema, No Calf Tenderness Skin: No rashes, No breakdown Psych/Mental Status: Normal Affect, Appropriate Vital Signs Temp Pulse Resp BP Pulse Ox 36.4 C L 72 24 H 134/99 H 94 02/06/18 15:37 02/06/18 15:37 02/06/18 15:37 02/06/18 15:37 02/06/18 15:37 Oxygen Flow Rate (L/min) 2 Oxygen Delivery Method Nasal Cannula Assessment/Plan All Active Problems Left ureteral calculus (Acute) Dyspnea (Acute) Sepsis (Acute) UTI (urinary tract infection) (Acute) 1. Sepsis * Secondary to urinary tract infection. Patient transiently got worse after 3. My feeling is that there may been some bacteria within the stone itself that may have been released with the procedure that may have caused transient worsening of symptoms. * I agree with checking the blood cultures to ensure that there is no bacteremia * I agree with the IV Cipro. We will adjust antibiotics accordingly based on results of blood cultures. Urine cultures were never performed during this admission nor the previous ER visits. 2. UTI * Exacerbated due to the kidney stone * Neck in order a urine culture because patient having already been on antibiotic low yield at this point in time. * We just continue with the Cipro 3. Left-sided kidney stone * Status post extraction by urology * Still with left flank pain. * Defer management to the urology service 4. Dyspnea * Transient hypoxia * Currently improved with oxygen * Chest x-ray ordered * As needed bronchodilators 5. DVT prophylaxis with SCDs Thank you for the consult. The hospitalist service will follow along since hospitalization Code Visit Inpatient E&M: 26780 Init Hosp L2
[2018-02-06 17:59] LABS: Anion Gap 7 (5-15); BUN 23 mg/dL (7-18); BUN/Creat Ratio 13.9 RATIO (10-20); Calcium,Total 8.1 mg/dL (8.5-10.1); Chloride 108 mmol/L (98-107); Creatinine, Serum 1.65 mg/dL (0.70-1.30); EST Glomerular Filtration Rate 43 mL/min (>60); Est Glom Filt Rate - Afr Amer 52 mL/min (>60); Estimated Creatinine Clearance 37.49 ml/min; Glucose 133 mg/dL (74-106); Potassium 4.1 mmol/L (3.5-5.1); Sodium Level 141 mmol/L (136-145)
[2018-02-06 18:06] LABS: Absolute Lymphocyte Count 0.31 X10^3/ul (0.83-4.51); Absolute Neutrophil Count 6.6 X10^3/uL (2.0-7.7); Differential Indicated SCAN CRITERIA MET; Hematocrit 35.6 % (40-54); Hemoglobin 12.1 g/dl (13.0-16.5); Lymphocyte # 0.31 X10^3/ul (4.0); Lymphocyte % 4.2 % (19-41); Mean Corpuscular Hgb 31.4 pg (27.0-32.0); Mean Corpuscular Volume 92.5 fL (80-94); Mean Platelet Vol. 10.5 fl (6.2-12.0); Monocyte# 0.44 X10^3/uL; Neutrophil # 6.58 X10^3/uL (2.7-7.7); Neutrophil % 89.7 % (47-70); POSITIVE COUNT NO; POSITIVE DIFFERENTIAL YES; POSITIVE MORPHOLOGY NO; Platelet Count 134 K/mm3 (150-450); RBC Distribution Width CV 13.5 % (11.6-14.6); RBC Distribution Width SD 45.1 fl (35.1-43.9); Red Blood Count 3.85 M/mm3 (4.6-6.2); White Blood Count 7.3 K/mm3 (4.4-11.0)
[2018-02-06] MEDS: Ceftriaxone 1 GM/50 ML BAG IV (18:33)
[2018-02-06 18:44] LABS: Anisocytosis RARE; Macrocytosis RARE; Platelet Estimate SLT DEC (ADEQ)
--- NOTE | 2018-02-07 03:13 | NURSING ---
This RN bladder scanned patient after voiding, patient voided 50mls and PVR was 40mls.
[2018-02-07 03:15] VITALS: BP 126/70; PULSE 75; RESP 18; TEMP 36.8; O2SAT 95
[2018-02-07] MEDS: 0.9% Normal Saline 1,000 ML 125 ML IV ×3 (03:17→21:30)
[2018-02-07] MEDS: Morphine 2 MG/ML Syringe IV ×3 (03:17→16:29)
--- NOTE | 2018-02-07 04:18 | NURSING ---
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
[2018-02-07 07:22] LABS: Anion Gap 7 (5-15); BUN 30 mg/dL (7-18); BUN/Creat Ratio 13.6 RATIO (10-20); Calcium,Total 8.2 mg/dL (8.5-10.1); Chloride 106 mmol/L (98-107); Creatinine, Serum 2.21 mg/dL (0.70-1.30); EST Glomerular Filtration Rate 31 mL/min (>60); Est Glom Filt Rate - Afr Amer 37 mL/min (>60); Estimated Creatinine Clearance 27.99 ml/min; Glucose 124 mg/dL (74-106); Potassium 4.2 mmol/L (3.5-5.1); Sodium Level 141 mmol/L (136-145)
--- NOTE | 2018-02-07 07:36 | PCM.PN.HOSP ---
Patient Problems: Active and Suspected Problems (Last Updated 02/06/18 @ 16:47 by Kevin Martinez DO) Left ureteral calculus (Acute) Dyspnea (Acute) Sepsis (Acute) UTI (urinary tract infection) (Acute) Subjective: Patient is a 77 year old gentleman admitted with sepsis secondary to complicated UTI. Patient did develop shortness of breath chest x-ray demonstrated bilateral infiltrates as well as cardiomegaly. CT of the chest without contrast as well as echo ordered as part of patient's evaluation Objective: GENERAL: cooperative. HEENT: Clear conjunctiva, moist oral mucosa NECK; supple, normal thyroid, no distended JVD. CHEST: Diminished to auscultation bilaterally, HEART: Regular S1 S2, no audible murmurs ABDOMEN: soft, non-tender, normoactive bowel sounds, RECTAL: deferred EXTREMITIES: No edema, no clubbing, no cyanosis. 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 SKIN: No Rash Vitals/I&O's: Vital Signs Temp Pulse Resp BP Pulse Ox 98.3 F 75 18 126/70 H 95 02/07/18 03:15 02/07/18 03:15 02/07/18 03:15 02/07/18 03:15 02/07/18 03:15 Oxygen Flow Rate (L/min) 2 Oxygen Delivery Method Nasal Cannula Intake and Output for Last 24 Hours 02/05/18 02/06/18 02/07/18 23:59 23:59 23:59 Intake Total 2960 / 4599 1225 / 1225 Output Total 425 / 1325 150 / 150 Balance 2535 / 3274 1075 / 1075 Laboratory Results 02/06/18 17:27: WBC 7.3, RBC 3.85 L, Hgb 12.1 L, Hct 35.6 L, MCV 92.5, MCH 31.4, MCHC 34.0, RDW 13.5, RDW Differential 45.1 H, Plt Count 134 L, MPV 10.5, Immature Gran % (Auto) 0.100, Neut % (Auto) 89.7 H, Lymph % (Auto) 4.2 L, [place] % (Auto) 6.0, Eos % (Auto) 0.0, Baso % (Auto) 0.0, Absolute Neuts (auto) 6.6, Absolute Lymphs (auto) 0.31 L, Total Counted Not Reportable, Differential Comment SEE COMMENT, Platelet Estimate SLT DEC, Anisocytosis RARE, Macrocytosis RARE 02/06/18 17:27: Sodium 141, Potassium 4.1, Chloride 108 H, Carbon Dioxide 26.0, Anion Gap 7, BUN 23 H, Creatinine 1.65 H, Estim Creat Clear Calc 37.49, Est GFR (MDRD) Af Amer 52 L, Est GFR (MDRD) Non-Af 43 L, BUN/Creatinine Ratio 13.9, Glucose 133 H, Calcium 8.1 L 02/07/18 06:55: WBC Pending, RBC Pending, Hgb Pending, Hct Pending, MCV Pending, MCH Pending, MCHC Pending, RDW Pending, RDW Differential Pending, Plt Count Pending, Neut % (Auto) Pending, Absolute Neuts (auto) Pending, Total Counted Pending 02/07/18 06:55: Sodium 141, Potassium 4.2, Chloride 106, Carbon Dioxide 28.0, Anion Gap 7, BUN 30 H, Creatinine 2.21 H, Estim Creat Clear Calc 27.99, Est GFR (MDRD) Af Amer 37 L, Est GFR (MDRD) Non-Af 31 L, BUN/Creatinine Ratio 13.6, Glucose 124 H, Calcium 8.2 L Current Medications Albuterol Sulfate (Ventolin Aerosols) 2.5 mg INHALATION Q2H PRN PRN PRN Reason: SHORTNESS OF BREATH Aspirin (Aspirin, Baby) 81 mg PO DAILY@0800 [facility] Last Admin: 02/06/18 13:34 Dose: 81 mg Atenolol (Tenormin (Beta Seth)) 50 mg PO DAILY [facility] Last Admin: 02/06/18 09:53 Dose: 50 mg Doxazosin Mesylate (Cardura) 8 mg PO DAILY@1700 [facility] Last Admin: 02/06/18 13:34 Dose: 8 mg Hydrochlorothiazide (Hctz) 25 mg PO DAILY [facility] Last Admin: 02/06/18 13:34 Dose: 25 mg Sodium Chloride () 1,000 mls @ 125 mls/hr IV .Q8H [facility] Last Admin: 02/07/18 03:17 Dose: 125 mls/hr Ceftriaxone Sodium (Rocephin) 1 gm in 50 mls @ 100 mls/hr IV Q24 [facility] Azithromycin 500 mg/ Dextrose 255 mls @ 250 mls/hr IV Q24 [facility] Lactulose (Chronulac, Cephulac) 10 gm PO DAILY PRN PRN Reason: Constipation Last Admin: 02/06/18 15:14 Dose: 10 gm Morphine Sulfate () 2 mg IV Q2H PRN PRN PRN Reason: SEVERE PAIN (6-10/10) Last Admin: 02/07/18 03:17 Dose: 2 mg Ondansetron HCl (Zofran) 4 mg IV Q4H PRN PRN PRN Reason: nausea/vomiting Sodium Chloride () 5 - 30 ml IV UD PRN PRN Reason: SALINE FLUSH Medical Necessity - Tobacco Use Smoking Status: Never smoker Tobacco Use: Non-smoker Assessment/Plan All Active Problems (Last Updated 02/06/18 @ 16:47 by Kevin Martinez DO) Left ureteral calculus (Acute) Dyspnea (Acute) Sepsis (Acute) UTI (urinary tract infection) (Acute) Patient is a 77-year-old gentleman admitted with sepsis secondary to complicated UTI as a result of kidney stones 1. Sepsis secondary to complicated UTI in the context of kidney stones. Admitted to regular nursing floor cultures since started on Cipro 2. Nephrolithiasis patient was noted to have left kidney stone for which he underwent extraction by urology 3. Acute dyspnea chest x-ray did demonstrate cardiomegaly with bibasilar infiltrate CT of the chest without contrast ordered for further evaluation also did obtain a 2D echo 4. Hypertension-blood pressure controlled, home medications continued with dose adjustment as needed 5. CKD stage III patient kidney function worsened following admission on IV fluids with monitoring of electrolyte 6. DVT prophylaxis SCDs Clinical Impression(s) from Imaging Studies Chest X-Ray 02/06/18 16:09 IMPRESSION: Cardiomegaly with bibasilar infiltrates. Electronically Signed: Jens Linares DO at 20:50 EDT Tel [phone], Service support , Active Medications Albuterol Sulfate (Ventolin Aerosols) 2.5 mg INHALATION Q2H PRN PRN PRN Reason: SHORTNESS OF BREATH Aspirin (Aspirin, Baby) 81 mg PO DAILY@0800 [facility] Last Admin: 02/06/18 13:34 Dose: 81 mg Atenolol (Tenormin (Beta Seth)) 50 mg PO DAILY [facility] Last Admin: 02/06/18 09:53 Dose: 50 mg Doxazosin Mesylate (Cardura) 8 mg PO DAILY@1700 [facility] Last Admin: 02/06/18 13:34 Dose: 8 mg Hydrochlorothiazide (Hctz) 25 mg PO DAILY [facility] Last Admin: 02/06/18 13:34 Dose: 25 mg Sodium Chloride () 1,000 mls @ 125 mls/hr IV .Q8H [facility] Last Admin: 02/07/18 03:17 Dose: 125 mls/hr Ceftriaxone Sodium (Rocephin) 1 gm in 50 mls @ 100 mls/hr IV Q24 [facility] Azithromycin 500 mg/ Dextrose 255 mls @ 250 mls/hr IV Q24 [facility] Lactulose (Chronulac, Cephulac) 10 gm PO DAILY PRN PRN Reason: Constipation Last Admin: 02/06/18 15:14 Dose: 10 gm Morphine Sulfate () 2 mg IV Q2H PRN PRN PRN Reason: SEVERE PAIN (6-10/10) Last Admin: 02/07/18 03:17 Dose: 2 mg Ondansetron HCl (Zofran) 4 mg IV Q4H PRN PRN PRN Reason: nausea/vomiting Sodium Chloride () 5 - 30 ml IV UD PRN PRN Reason: SALINE FLUSH Code Visit Inpatient E&M: 59692 [facility] Hosp L3
--- NOTE | 2018-02-07 07:39 | CT_ITS ---
STUDY: CT CHEST WITHOUT CONTRAST REASON FOR EXAM: Male, 77 years old. Wheezing. Hypertension. RADIATION DOSAGE (If Supplied By Facility): CTDIvol = ( 16.46 ) mGy, DLP = ( 534.59 ) mGycm TECHNIQUE: Transaxial imaging was performed without the administration of intravenous contrast material. Individualized dose optimization techniques were used for this CT. COMPARISON: None. FINDINGS: Patchy infiltrates in both lower lobes worse on the left side. Mild degree of infiltration in the anterior aspect of the lingular segment of left upper lobe as well as the posterior aspect of the right upper lobe. There is no demonstrated pleural abnormality. There are calcifications of the coronary arteries. There are multiple small lymph nodes within the mediastinum, which are normal in size and morphology most compatible with reactive lymph hyperplasia. Normal hilar regions. Normal unenhanced pulmonary arteries. There is atherosclerotic calcification of the aortic arch with tortuosity and elongation of the aortic arch and descending thoracic aorta. There are multi-level degenerative changes of the thoracic spine. Small hiatal hernia. CT/Chest without Contrast IMPRESSION: Infiltrates in both lower lobes as well as in the right upper lobe and lingular segments of the left upper lobe. Electronically Signed: Santiago Ledesma MD at 8:48 EDT Tel [phone], Service support ,
[2018-02-07 07:40] LABS: Absolute Lymphocyte Count 1.08 X10^3/ul (0.83-4.51); Absolute Neutrophil Count 9.5 X10^3/uL (2.0-7.7); Basophil# 0.01 X10^3/uL; Basophil% 0.1 % (0-1); Eosinophil# 0.03 X10^3/uL; Eosinophils% 0.3 % (0-5); Hematocrit 31.9 % (40-54); Hemoglobin 10.6 g/dl (13.0-16.5); Lymphocyte # 1.08 X10^3/ul (4.0); Lymphocyte % 9.5 % (19-41); Mean Corp Hgb Conc 33.2 g/gl (32-36); Mean Corpuscular Hgb 30.8 pg (27.0-32.0); Mean Corpuscular Volume 92.7 fL (80-94); Mean Platelet Vol. 10.6 fl (6.2-12.0); Monocyte# 0.74 X10^3/uL; Monocyte% 6.5 % (0-10); Neutrophil # 9.54 X10^3/uL (2.7-7.7); Neutrophil % 83.5 % (47-70); Platelet Count 119 K/mm3 (150-450); RBC Distribution Width SD 47.6 fl (35.1-43.9); Red Blood Count 3.44 M/mm3 (4.6-6.2); White Blood Count 11.4 K/mm3 (4.4-11.0)
[2018-02-07 07:43] LABS: POSITIVE COUNT NO; POSITIVE DIFFERENTIAL NO; POSITIVE MORPHOLOGY NO
--- NOTE | 2018-02-07 07:47 | PN_ITS ---
Patient Problems: Active and Suspected Problems (Last Updated 02/06/18 @ 16:47 by Kevin Martinez DO ) Left ureteral calculus (Acute) Dyspnea (Acute) Sepsis (Acute) UTI (urinary tract infection) (Acute) Subjective: Patient is a 77 year old gentleman admitted with sepsis secondary to complicated UTI. Patient did develop shortness of breath chest x-ray demonstrated bilateral infiltrates as well as cardiomegaly. CT of the chest without contrast as well as echo ordered as part of patient's evaluation Objective: GENERAL: cooperative. HEENT: Clear conjunctiva, moist oral mucosa NECK; supple, normal thyroid, no distended JVD. CHEST: Diminished to auscultation bilaterally, HEART: Regular S1 S2, no audible murmurs ABDOMEN: soft, non-tender, normoactive bowel sounds, RECTAL: deferred EXTREMITIES: No edema, no clubbing, no cyanosis. PSYCHOLOGICAL OPERATIONS SPECIALIST: Awake; no lateralizing signs. SKIN: No Rash Vitals/I&O's: Vital Signs Temp Pulse Resp BP Pulse Ox 98.3 F 75 18 126/70 H 95 02/07/18 03:15 02/07/18 03:15 02/07/18 03:15 02/07/18 03:15 02/07/18 03:15 Oxygen Flow Rate (L/min) 2 Oxygen Delivery Method Nasal Cannula Intake and Output for Last 24 Hours 02/05/18 02/06/18 02/07/18 23:59 23:59 23:59 Intake Total 2960 / 4599 1225 / 1225 Output Total 425 / 1325 150 / 150 Balance 2535 / 3274 1075 / 1075 Laboratory Results 02/06/18 17:27: WBC 7.3, RBC 3.85 L, Hgb 12.1 L, Hct 35.6 L, MCV 92.5, MCH 31.4 , MCHC 34.0, RDW 13.5, RDW Differential 45.1 H, Plt Count 134 L, MPV 10.5, Immature Gran % (Auto) 0.100, Neut % (Auto) 89.7 H, Lymph % (Auto) 4.2 L, [place] % (Auto) 6.0, Eos % (Auto) 0.0, Baso % (Auto) 0.0, Absolute Neuts (auto) 6.6, Absolute Lymphs (auto) 0.31 L, Total Counted Not Reportable, Differential Comment SEE COMMENT, Platelet Estimate SLT DEC, Anisocytosis RARE, Macrocytosis RARE 02/06/18 17:27: Sodium 141, Potassium 4.1, Chloride 108 H, Carbon Dioxide 26.0, Anion Gap 7, BUN 23 H, Creatinine 1.65 H, Estim Creat Clear Calc 37.49, Est GFR (MDRD) Af Amer 52 L, Est GFR (MDRD) Non-Af 43 L, BUN/Creatinine Ratio 13.9, Glucose 133 H, Calcium 8.1 L 02/07/18 06:55: WBC Pending, RBC Pending, Hgb Pending, Hct Pending, MCV Pending , MCH Pending, MCHC Pending, RDW Pending, RDW Differential Pending, Plt Count Pending, Neut % (Auto) Pending, Absolute Neuts (auto) Pending, Total Counted Pending 02/07/18 06:55: Sodium 141, Potassium 4.2, Chloride 106, Carbon Dioxide 28.0, Anion Gap 7, BUN 30 H, Creatinine 2.21 H, Estim Creat Clear Calc 27.99, Est GFR (MDRD) Af Amer 37 L, Est GFR (MDRD) Non-Af 31 L, BUN/Creatinine Ratio 13.6, Glucose 124 H, Calcium 8.2 L Current Medications Albuterol Sulfate (Ventolin Aerosols) 2.5 mg INHALATION Q2H PRN PRN PRN Reason: SHORTNESS OF BREATH Aspirin (Aspirin, Baby) 81 mg PO DAILY@0800 [facility] Last Admin: 02/06/18 13:34 Dose: 81 mg Atenolol (Tenormin (Beta Seth)) 50 mg PO DAILY [facility] Last Admin: 02/06/18 09:53 Dose: 50 mg Doxazosin Mesylate (Cardura) 8 mg PO DAILY@1700 [facility] Last Admin: 02/06/18 13:34 Dose: 8 mg Hydrochlorothiazide (Hctz) 25 mg PO DAILY [facility] Last Admin: 02/06/18 13:34 Dose: 25 mg Sodium Chloride () 1,000 mls @ 125 mls/hr IV .Q8H [facility] Last Admin: 02/07/18 03:17 Dose: 125 mls/hr Ceftriaxone Sodium (Rocephin) 1 gm in 50 mls @ 100 mls/hr IV Q24 [facility] Azithromycin 500 mg/ Dextrose 255 mls @ 250 mls/hr IV Q24 [facility] Lactulose (Chronulac, Cephulac) 10 gm PO DAILY PRN PRN Reason: Constipation Last Admin: 02/06/18 15:14 Dose: 10 gm Morphine Sulfate () 2 mg IV Q2H PRN PRN PRN Reason: SEVERE PAIN (6-10/10) Last Admin: 02/07/18 03:17 Dose: 2 mg Ondansetron HCl (Zofran) 4 mg IV Q4H PRN PRN PRN Reason: nausea/vomiting Sodium Chloride () 5 - 30 ml IV UD PRN PRN Reason: SALINE FLUSH Medical Necessity - Tobacco Use Smoking Status: Never smoker Tobacco Use: Non-smoker Assessment/Plan All Active Problems (Last Updated 02/06/18 @ 16:47 by Kevin Martinez DO) Left ureteral calculus (Acute) Dyspnea (Acute) Sepsis (Acute) UTI (urinary tract infection) (Acute) Patient is a 77-year-old gentleman admitted with sepsis secondary to complicated UTI as a result of kidney stones 1. Sepsis secondary to complicated UTI in the context of kidney stones. Admitted to regular nursing floor cultures since started on Cipro 2. Nephrolithiasis patient was noted to have left kidney stone for which he underwent extraction by urology 3. Acute dyspnea chest x-ray did demonstrate cardiomegaly with bibasilar infiltrate CT of the chest without contrast ordered for further evaluation also did obtain a 2D echo 4. Hypertension-blood pressure controlled, home medications continued with dose adjustment as needed 5. CKD stage III patient kidney function worsened following admission on IV fluids with monitoring of electrolyte 6. DVT prophylaxis SCDs Clinical Impression(s) from Imaging Studies Chest X-Ray 02/06/18 16:09 IMPRESSION: Cardiomegaly with bibasilar infiltrates. Electronically Signed: Jnes Linares DO at 20:50 EDT Tel [phone], Service support , Active Medications Albuterol Sulfate (Ventolin Aerosols) 2.5 mg INHALATION Q2H PRN PRN PRN Reason: SHORTNESS OF BREATH Aspirin (Aspirin, Baby) 81 mg PO DAILY@0800 [facility] Last Admin: 02/06/18 13:34 Dose: 81 mg Atenolol (Tenormin (Beta Seth)) 50 mg PO DAILY [facility] Last Admin: 02/06/18 09:53 Dose: 50 mg Doxazosin Mesylate (Cardura) 8 mg PO DAILY@1700 [facility] Last Admin: 02/06/18 13:34 Dose: 8 mg Hydrochlorothiazide (Hctz) 25 mg PO DAILY [facility] Last Admin: 02/06/18 13:34 Dose: 25 mg Sodium Chloride () 1,000 mls @ 125 mls/hr IV .Q8H [facility] Last Admin: 02/07/18 03:17 Dose: 125 mls/hr Ceftriaxone Sodium (Rocephin) 1 gm in 50 mls @ 100 mls/hr IV Q24 [facility] Azithromycin 500 mg/ Dextrose 255 mls @ 250 mls/hr IV Q24 [facility] Lactulose (Chronulac, Cephulac) 10 gm PO DAILY PRN PRN Reason: Constipation Last Admin: 02/06/18 15:14 Dose: 10 gm Morphine Sulfate () 2 mg IV Q2H PRN PRN PRN Reason: SEVERE PAIN (6-10/10) Last Admin: 02/07/18 03:17 Dose: 2 mg Ondansetron HCl (Zofran) 4 mg IV Q4H PRN PRN PRN Reason: nausea/vomiting Sodium Chloride () 5 - 30 ml IV UD PRN PRN Reason: SALINE FLUSH Code Visit Inpatient E&M: 49189 [facility] Hosp L3
[2018-02-07] MEDS: Atenolol 50 MG Tablet PO (09:12)
[2018-02-07] MEDS: Aspirin 81 MG TAB.CHEW PO (09:12)
[2018-02-07] MEDS: Ceftriaxone 1 GM/50 ML BAG IV (09:14)
[2018-02-07 09:15] VITALS: BP 119/64; PULSE 66; RESP 16; TEMP 36.8; O2SAT 92
--- NOTE | 2018-02-07 10:14 | ECHOD_ITS ---
Reason For Study: Chest Pain Procedure This was a 2D Doppler, Color Flow transthoracic echocardiogram. Exam performed portable in patient room. Left Ventricle Normal size and thickness. The estimated ejection fraction is 65 %. Stage 1 diastolic dysfunction. No regional wall motion abnormalities noted. Right Ventricle Normal size and thickness. Normal systolic function. Atria Normal left atrium. Normal right atrium. Normal atrial septum. Mitral Valve The mitral valve is structurally normal. No prolapse or stenosis seen. Trivial mitral valve insufficiency. Tricuspid Valve Normal tricuspid valve. Trivial tricuspid valve insufficiency. Right ventricular systolic pressure estimated to be 39 mmHg. Mild pulmonary hypertension. Aortic Valve Normal aortic valve. Trisinus/trileaflet aortic valve. Pulmonic Valve Normal pulmonic valve. Trivial pulmonic valve insufficiency. Great Vessels Normal aortic root. Normal arch. Normal inferior vena cava. Inferior vena cava collapse with sniff. Pericardium/Pleural No pericardial effusion. Medication Performed a rapid injection of agitated mix of 9 cc saline and 1cc air to assess for atrial septal defect. MMode/2D Measurements & Calculations LVIDd: 4.4 cm IVSd: 1.5 cm Ao root diam: 3.2 cm LVIDs: 2.7 cm LVPWd: 1.2 cm RVDd: 4.0 cm FS: 38.9 % LAV(MOD-bp): 46.5 ml EDV(MOD-sp4): 78.3 ml SV(MOD-sp4): 48.1 ml LAV(MOD-bp) Indexed: 23.1 ml/m2 ESV(MOD-sp4): 30.3 ml LAV(MOD-sp2): 50.4 ml EF(MOD-sp4): 61.3 % LAV(MOD-sp4): 41.6 ml LA A4 area: 17.9 cm2 RA A4 area: 15.8 cm2 Doppler Measurements & Calculations MV E max [place]: 83.1 cm/sec Lat Peak E' [place]: 9.6 cm/sec Med Peak E' [place]: 5.9 cm/sec MV A max [place]: 112.8 cm/sec E/E' lat: 8.6 E/E' med: 14.2 MV E/A: 0.74 Ao V2 max: 159.4 cm/sec LV V1 max: 108.7 cm/sec PA V2 max: 75.9 cm/sec Ao max P.2 mmHg LV V1 max P.7 mmHg Ao V2 mean: 113.5 cm/sec Ao mean P.7 mmHg Ao V2 VTI: 36.1 cm TR max [place]: 295.9 cm/sec TR max P.0 mmHg Interpretation Summary The estimated ejection fraction is 65 %. Stage 1 diastolic dysfunction. Trivial mitral valve insufficiency. Trivial tricuspid valve insufficiency. Right ventricular systolic pressure estimated to be 39 mmHg. Mild pulmonary hypertension. There is no comparison study available. Ordering Physician: Tommy Munson Referring Physician: José Miguel Rodriguez Performed By: Dionna Saunders, YFN, RVT
[2018-02-07] MEDS: Lactulose 20 GM/30 ML UDC 10 GM PO (10:20)
[2018-02-07] MEDS: Magnesium Hydroxide 30 ML UDC PO (14:17)
[2018-02-07 15:15] VITALS: BP 129/68; PULSE 71; RESP 16; TEMP 36.8; O2SAT 95
[2018-02-07] MEDS: Doxazosin 4 MG Tablet 8 MG PO (16:24)
[2018-02-07] MEDS: Bisacodyl 10 MG Suppository RECTAL (18:50)
[2018-02-07] MEDS: 0.9% NaCl Peripheral Flush Adult/Peds IV (20:33)
[2018-02-07] MEDS: Ondansetron 4 MG/2 ML Vial IV (20:33)
--- NOTE | 2018-02-07 21:20 | NUR.TO.PHY ---
Patient's called in very upset that patient is not being taken care of. Said called her and said he was having severe pain. Explained medications that had been given to patient, and new orders from Dr. Zimmer of lactulose and tylenol. Explained to we were encouraging ambulation and that medication will not have an instantaneous effect. Also explained why morphine can hinder BM. stated we weren't doing enough and hung up on this nurse.
[2018-02-07] MEDS: Acetaminophen 325 MG Tablet 650 MG PO (21:30)
[2018-02-07 21:36] VITALS: BP 137/79; PULSE 84; RESP 18; TEMP 36.4; O2SAT 94
[2018-02-07] MEDS: Lactulose 20 GM/30 ML UDC PO ×2 (21:48→23:13)
--- NOTE | 2018-02-07 22:33 | NURSING ---
called in for update, informed patient had been given lactulose and tylenol and that MD had prescribed an enema. Patient has Kpad. Informed patient is currently asleep in chair.
--- NOTE | 2018-02-08 00:03 | NURSING ---
Eneama given @ this time per patient request.
--- NOTE | 2018-02-08 02:11 | CT_ITS ---
STUDY: CT ABDOMEN AND PELVIS WITHOUT CONTRAST REASON FOR EXAM: Male, 77 years old. Obstruction TECHNIQUE: Transaxial 2.5 mm images were obtained from the dome of the diaphragm to the symphysis pubis without oral contrast, and without intravenous contrast. Sagittal and coronal images were reconstructed. This examination is limited for the evaluation of gastrointestinal, solid organs and vascular structures due to the lack of intravenous and oral contrast. There is obesity, the entirety of soft tissue is not imaged. Individualized dose optimization techniques were used for this CT. COMPARISON: CT abdomen pelvis 02/02/2018 FINDINGS: Right greater than left basilar opacification is new since previous exam. The visualized portions of the heart are within normal limits. There is decreased attenuation of the liver consistent with steatosis. Previously described faint low-attenuation in the right hepatic lobe not appreciated on current exam. Nonvisualized gallbladder and normal extrahepatic biliary system. Normal spleen. There is fat deposition in the pancreas. Normal bilateral adrenal glands. There is perirenal stranding. Posterior low-attenuation right inferior pole 2 x 2 cm without evidence exophytic 0.5 cm inferior pole lesion remains indeterminate. Change . Mild left hydronephrosis and hydroureter. Previously seen calculus in the left mid ureter is absent. Tiny pocket of air in the anterior nondependent left renal collecting system image 65 series 2. Indeterminate low-attenuation left renal cortex. Mild stranding along the left ureter and left inferior pararenal space extending along the left lateral pelvic wall. There is a small hiatal hernia. Increased fluid within the small bowel, dilatation up to 2.5 cm. There is no abrupt caliber change. There are multiple colonic diverticula consistent with diverticulosis. Colon is filled with liquid stool and air. There is no abrupt caliber change or colonic obstruction. The appendix is visualized and appears normal. Image 122-133 series 2. There is atherosclerotic calcification of the abdominal aorta, without a demonstrated aneurysm. Normal inferior vena cava. Normal retroperitoneum. Normal pocket of air in the nondependent urinary bladder frequently seen in iatrogenic. There is stable enlargement of the prostate gland. There are stable small bilateral inguinal hernia containing adipose tissue. There are diffuse degenerative changes of the visualized lumbar spine. Distal lumbar foraminal spinal canal stenosis without change. CT/Abdomen/Pelvis without Cont IMPRESSION: New significant colonic distention since previous examination without abrupt caliber change, wall or fold thickening to suggest an inflammatory process. Mild increase of air distention of small bowel without abrupt caliber change. Findings could represent intestinal ileus. There is no appendicitis, diverticulitis, ascites, abscess, collection, perforation, colonic or small bowel obstruction. Air in the nondependent left collecting system with interval resolution of previous obstructing left ureteral calculus may be due to iatrogenic etiology. If there was no instrumentation in the recent past, consider gas producing bacteria/agents. Stable hepatic steatosis, cholecystectomy, fatty replaced pancreas, bilateral perirenal stranding, renal lesions some of which are indeterminate, hiatal hernia, colonic diverticulosis, arteriosclerosis, prostate enlargement, degenerative changes, fat-containing ventral hernias. Electronically Signed: Delia Whelan MD at 5:45 EDT , Service support ,
[2018-02-08] MEDS: 0.9% NaCl Peripheral Flush Adult/Peds IV ×2 (02:15→18:40)
[2018-02-08] MEDS: Ondansetron 4 MG/2 ML Vial IV (02:15)
[2018-02-08 02:31] VITALS: BP 147/82; PULSE 89; RESP 16; TEMP 36.5; O2SAT 95
--- NOTE | 2018-02-08 05:23 | NURSING ---
Call to CT asking when to expect results to be read as it has been 3 hours. electronic systems technicianCasi perez apologized, forgot to validate report. Said to expect results in next 30m.
[2018-02-08 07:01] LABS: Anion Gap 10 (5-15); BUN 33 mg/dL (7-18); BUN/Creat Ratio 14.5 RATIO (10-20); Calcium,Total 8.5 mg/dL (8.5-10.1); Chloride 105 mmol/L (98-107); Creatinine, Serum 2.28 mg/dL (0.70-1.30); EST Glomerular Filtration Rate 30 mL/min (>60); Est Glom Filt Rate - Afr Amer 36 mL/min (>60); Estimated Creatinine Clearance 27.13 ml/min; Glucose 122 mg/dL (74-106); Potassium 3.8 mmol/L (3.5-5.1); Sodium Level 139 mmol/L (136-145)
[2018-02-08 07:02] LABS: Hematocrit 29.2 % (40-54); Hemoglobin 9.7 g/dl (13.0-16.5); Mean Corp Hgb Conc 33.2 g/gl (32-36); Mean Corpuscular Hgb 30.8 pg (27.0-32.0); Mean Corpuscular Volume 92.7 fL (80-94); Mean Platelet Vol. 10.8 fl (6.2-12.0); Platelet Count 120 K/mm3 (150-450); RBC Distribution Width CV 13.3 % (11.6-14.6); RBC Distribution Width SD 43.9 fl (35.1-43.9); Red Blood Count 3.15 M/mm3 (4.6-6.2); White Blood Count 8.4 K/mm3 (4.4-11.0)
[2018-02-08 07:10] LABS: Scan Indicated on CBC? Y/N NO
--- NOTE | 2018-02-08 07:29 | PCM.PN.HOSP ---
Patient Problems: Active and Suspected Problems (Last Updated 02/06/18 @ 16:47 by Kevin Martinez DO) Left ureteral calculus (Acute) Dyspnea (Acute) Sepsis (Acute) UTI (urinary tract infection) (Acute) Subjective: Patient seen CT of the chest obtained demonstrated Infiltrates in both lower lobes as well as in the right upper lobe and lingular segments of the left upper lobe. Patient was also reported to have experienced several loose bowel movement of note patient is on lactulose. Complains of feeling tired this a.m. Objective: GENERAL: cooperative. HEENT: Clear conjunctiva, moist oral mucosa NECK; supple, normal thyroid, no distended JVD. CHEST: Diminished to auscultation bilaterally, HEART: Regular S1 S2, no audible murmurs ABDOMEN: soft, non-tender, normoactive bowel sounds, RECTAL: deferred EXTREMITIES: No edema, no clubbing, no cyanosis. BENDING SHED WORKER: Awake; no lateralizing signs. SKIN: No Rash Vitals/I&O's: Vital Signs Temp Pulse Resp BP Pulse Ox 97.7 F L 89 16 147/82 H 95 02/08/18 02:31 02/08/18 02:31 02/08/18 02:31 02/08/18 02:31 02/08/18 02:31 Oxygen Flow Rate (L/min) 2 Oxygen Delivery Method Room Air Intake and Output for Last 24 Hours 02/06/18 02/07/18 02/08/18 23:59 23:59 23:59 Intake Total 2960 / 4599 2150 / 2150 3590 / 3590 Output Total 425 / 1325 600 / 600 1050 / 1050 Balance 2535 / 3274 1550 / 1550 2540 / 2540 Laboratory Results 02/07/18 06:55: WBC 11.4 H, RBC 3.44 L, Hgb 10.6 L, Hct 31.9 L, MCV 92.7, MCH 30.8, MCHC 33.2, RDW 14.0, RDW Differential 47.6 H, Plt Count 119 L, MPV 10.6, Immature Gran % (Auto) 0.100, Neut % (Auto) 83.5 H, Lymph % (Auto) 9.5 L, [place] % (Auto) 6.5, Eos % (Auto) 0.3, Baso % (Auto) 0.1, Absolute Neuts (auto) 9.5 H, Absolute Lymphs (auto) 1.08, Total Counted Not Reportable 02/08/18 06:25: WBC 8.4, RBC 3.15 L, Hgb 9.7 L, Hct 29.2 L, MCV 92.7, MCH 30.8, MCHC 33.2, RDW 13.3, RDW Differential 43.9, Plt Count 120 L, MPV 10.8 02/08/18 06:25: Sodium 139, Potassium 3.8, Chloride 105, Carbon Dioxide 24.0, Anion Gap 10, BUN 33 H, Creatinine 2.28 H, Estim Creat Clear Calc 27.13, Est GFR (MDRD) Af Amer 36 L, Est GFR (MDRD) Non-Af 30 L, BUN/Creatinine Ratio 14.5, Glucose 122 H, Calcium 8.5 Current Medications Acetaminophen (Tylenol) 650 mg PO Q4H PRN PRN PRN Reason: PAIN Last Admin: 02/07/18 21:30 Dose: 650 mg Albuterol Sulfate (Ventolin Aerosols) 2.5 mg INHALATION Q2H PRN PRN PRN Reason: SHORTNESS OF BREATH Aspirin (Aspirin, Baby) 81 mg PO DAILY@0800 [facility] Last Admin: 02/07/18 09:12 Dose: 81 mg Atenolol (Tenormin (Beta Seth)) 50 mg PO DAILY [facility] Last Admin: 02/07/18 09:12 Dose: 50 mg Bisacodyl (Dulcolax) 10 mg RECTAL DAILY [facility] Last Admin: 02/07/18 18:50 Dose: 10 mg Doxazosin Mesylate (Cardura) 8 mg PO DAILY@1700 [facility] Last Admin: 02/07/18 16:24 Dose: 8 mg Sodium Chloride () 1,000 mls @ 125 mls/hr IV .Q8H [facility] Last Admin: 02/07/18 21:30 Dose: 125 mls/hr Ceftriaxone Sodium (Rocephin) 1 gm in 50 mls @ 100 mls/hr IV Q24 [facility] Last Admin: 02/07/18 09:14 Dose: 100 mls/hr Azithromycin 500 mg/ Dextrose 255 mls @ 250 mls/hr IV Q24 [facility] Last Admin: 02/07/18 10:20 Dose: 250 mls/hr Lactulose (Chronulac, Cephulac) 10 gm PO DAILY PRN PRN Reason: Constipation Last Admin: 02/07/18 10:20 Dose: 10 gm Lactulose (Chronulac, Cephulac) 20 gm PO Q1H PRN PRN PRN Reason: Constipation Last Admin: 02/07/18 23:13 Dose: 20 gm Magnesium Hydroxide (Milk Of Magnesia) 30 ml PO DAILY PRN PRN Reason: Constipation Last Admin: 02/07/18 14:17 Dose: 30 ml Morphine Sulfate () 2 mg IV Q2H PRN PRN PRN Reason: SEVERE PAIN (6-10/10) Last Admin: 02/07/18 16:29 Dose: 2 mg Ondansetron HCl (Zofran) 4 mg IV Q4H PRN PRN PRN Reason: nausea/vomiting Last Admin: 02/08/18 02:15 Dose: 4 mg Sodium Chloride () 5 - 30 ml IV UD PRN PRN Reason: SALINE FLUSH Last Admin: 02/08/18 02:15 Dose: 10 ml Medical Necessity - Tobacco Use Smoking Status: Never smoker Tobacco Use: Non-smoker Assessment/Plan All Active Problems (Last Updated 02/06/18 @ 16:47 by Kevin Martinez DO) Left ureteral calculus (Acute) Dyspnea (Acute) Sepsis (Acute) UTI (urinary tract infection) (Acute) Patient is a 77-year-old gentleman admitted with sepsis secondary to complicated UTI as a result of kidney stones 1. Sepsis secondary to complicated UTI in the context of kidney stones. Admitted to regular nursing floor cultures since started on Cipro 2. Nephrolithiasis patient was noted to have left kidney stone for which he underwent extraction by urology 3. Acute dyspnea secondary to community-acquired pneumonia chest x-ray did demonstrate cardiomegaly with bibasilar infiltrate CT of the chest without contrast ordered for further evaluation also did obtain a 2D echo. CT demonstrated Infiltrates in both lower lobes as well as in the right upper lobe and lingular segments of the left upper lobe. Revealed ejection fraction of 65% 4. Hypertension-blood pressure controlled, home medications continued with dose adjustment as needed 5. Acute on chronic kidney disease III patient kidney function worsened following admission on IV fluids with monitoring of electrolyte 6. DVT prophylaxis SCDs Active Medications Acetaminophen (Tylenol) 650 mg PO Q4H PRN PRN PRN Reason: PAIN Last Admin: 02/07/18 21:30 Dose: 650 mg Albuterol Sulfate (Ventolin Aerosols) 2.5 mg INHALATION Q2H PRN PRN PRN Reason: SHORTNESS OF BREATH Aspirin (Aspirin, Baby) 81 mg PO DAILY@0800 [facility] Last Admin: 02/07/18 09:12 Dose: 81 mg Atenolol (Tenormin (Beta Seth)) 50 mg PO DAILY [facility] Last Admin: 02/07/18 09:12 Dose: 50 mg Bisacodyl (Dulcolax) 10 mg RECTAL DAILY [facility] Last Admin: 02/07/18 18:50 Dose: 10 mg Doxazosin Mesylate (Cardura) 8 mg PO DAILY@1700 [facility] Last Admin: 02/07/18 16:24 Dose: 8 mg Sodium Chloride () 1,000 mls @ 125 mls/hr IV .Q8H [facility] Last Admin: 02/07/18 21:30 Dose: 125 mls/hr Ceftriaxone Sodium (Rocephin) 1 gm in 50 mls @ 100 mls/hr IV Q24 [facility] Last Admin: 02/07/18 09:14 Dose: 100 mls/hr Azithromycin 500 mg/ Dextrose 255 mls @ 250 mls/hr IV Q24 [facility] Last Admin: 02/07/18 10:20 Dose: 250 mls/hr Lactulose (Chronulac, Cephulac) 10 gm PO DAILY PRN PRN Reason: Constipation Last Admin: 02/07/18 10:20 Dose: 10 gm Lactulose (Chronulac, Cephulac) 20 gm PO Q1H PRN PRN PRN Reason: Constipation Last Admin: 02/07/18 23:13 Dose: 20 gm Magnesium Hydroxide (Milk Of Magnesia) 30 ml PO DAILY PRN PRN Reason: Constipation Last Admin: 02/07/18 14:17 Dose: 30 ml Morphine Sulfate () 2 mg IV Q2H PRN PRN PRN Reason: SEVERE PAIN (6-10/10) Last Admin: 02/07/18 16:29 Dose: 2 mg Ondansetron HCl (Zofran) 4 mg IV Q4H PRN PRN PRN Reason: nausea/vomiting Last Admin: 02/08/18 02:15 Dose: 4 mg Sodium Chloride () 5 - 30 ml IV UD PRN PRN Reason: SALINE FLUSH Last Admin: 02/08/18 02:15 Dose: 10 ml Clinical Impression(s) from Imaging Studies Chest X-Ray 02/06/18 16:09 IMPRESSION: Cardiomegaly with bibasilar infiltrates. Electronically Signed: Jens Linares DO at 20:50 EDT Tel [phone], Service support , Chest CT 02/07/18 07:39 IMPRESSION: Infiltrates in both lower lobes as well as in the right upper lobe and lingular segments of the left upper lobe. Electronically Signed: Santiago Ledesma MD at 8:48 EDT Tel [phone], Service support , Abdomen/Pelvis CT 02/08/18 02:11 IMPRESSION: New significant colonic distention since previous examination without abrupt caliber change, wall or fold thickening to suggest an inflammatory process. Mild increase of air distention of small bowel without abrupt caliber change. Findings could represent intestinal ileus. There is no appendicitis, diverticulitis, ascites, abscess, collection, perforation, colonic or small bowel obstruction. Air in the nondependent left collecting system with interval resolution of previous obstructing left ureteral calculus may be due to iatrogenic etiology. If there was no instrumentation in the recent past, consider gas producing bacteria/agents. Stable hepatic steatosis, cholecystectomy, fatty replaced pancreas, bilateral perirenal stranding, renal lesions some of which are indeterminate, hiatal hernia, colonic diverticulosis, arteriosclerosis, prostate enlargement, degenerative changes, fat-containing ventral hernias. Electronically Signed: Delia Whelan MD at 5:45 EDT , Service support , Code Visit Inpatient E&M: 27488 Subs Hosp L3
--- NOTE | 2018-02-08 07:32 | PN_ITS ---
Patient Problems: Active and Suspected Problems (Last Updated 02/06/18 @ 16:47 by Kevin Martinez DO ) Left ureteral calculus (Acute) Dyspnea (Acute) Sepsis (Acute) UTI (urinary tract infection) (Acute) Subjective: Patient seen CT of the chest obtained demonstrated Infiltrates in both lower lobes as well as in the right upper lobe and lingular segments of the left upper lobe. Patient was also reported to have experienced several loose bowel movement of note patient is on lactulose. Complains of feeling tired this a.m. Objective: GENERAL: cooperative. HEENT: Clear conjunctiva, moist oral mucosa NECK; supple, normal thyroid, no distended JVD. CHEST: Diminished to auscultation bilaterally, HEART: Regular S1 S2, no audible murmurs ABDOMEN: soft, non-tender, normoactive bowel sounds, RECTAL: deferred EXTREMITIES: No edema, no clubbing, no cyanosis. 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 SKIN: No Rash Vitals/I&O's: Vital Signs Temp Pulse Resp BP Pulse Ox 97.7 F L 89 16 147/82 H 95 02/08/18 02:31 02/08/18 02:31 02/08/18 02:31 02/08/18 02:31 02/08/18 02:31 Oxygen Flow Rate (L/min) 2 Oxygen Delivery Method Room Air Intake and Output for Last 24 Hours 02/06/18 02/07/18 02/08/18 23:59 23:59 23:59 Intake Total 2960 / 4599 2150 / 2150 3590 / 3590 Output Total 425 / 1325 600 / 600 1050 / 1050 Balance 2535 / 3274 1550 / 1550 2540 / 2540 Laboratory Results 02/07/18 06:55: WBC 11.4 H, RBC 3.44 L, Hgb 10.6 L, Hct 31.9 L, MCV 92.7, MCH 30.8, MCHC 33.2, RDW 14.0, RDW Differential 47.6 H, Plt Count 119 L, MPV 10.6, Immature Gran % (Auto) 0.100, Neut % (Auto) 83.5 H, Lymph % (Auto) 9.5 L, [place] % (Auto) 6.5, Eos % (Auto) 0.3, Baso % (Auto) 0.1, Absolute Neuts (auto) 9.5 H, Absolute Lymphs (auto) 1.08, Total Counted Not Reportable 02/08/18 06:25: WBC 8.4, RBC 3.15 L, Hgb 9.7 L, Hct 29.2 L, MCV 92.7, MCH 30.8, MCHC 33.2, RDW 13.3, RDW Differential 43.9, Plt Count 120 L, MPV 10.8 02/08/18 06:25: Sodium 139, Potassium 3.8, Chloride 105, Carbon Dioxide 24.0, Anion Gap 10, BUN 33 H, Creatinine 2.28 H, Estim Creat Clear Calc 27.13, Est GFR (MDRD) Af Amer 36 L, Est GFR (MDRD) Non-Af 30 L, BUN/Creatinine Ratio 14.5, Glucose 122 H, Calcium 8.5 Current Medications Acetaminophen (Tylenol) 650 mg PO Q4H PRN PRN PRN Reason: PAIN Last Admin: 02/07/18 21:30 Dose: 650 mg Albuterol Sulfate (Ventolin Aerosols) 2.5 mg INHALATION Q2H PRN PRN PRN Reason: SHORTNESS OF BREATH Aspirin (Aspirin, Baby) 81 mg PO DAILY@0800 [facility] Last Admin: 02/07/18 09:12 Dose: 81 mg Atenolol (Tenormin (Beta Seth)) 50 mg PO DAILY [facility] Last Admin: 02/07/18 09:12 Dose: 50 mg Bisacodyl (Dulcolax) 10 mg RECTAL DAILY [facility] Last Admin: 02/07/18 18:50 Dose: 10 mg Doxazosin Mesylate (Cardura) 8 mg PO DAILY@1700 [facility] Last Admin: 02/07/18 16:24 Dose: 8 mg Sodium Chloride () 1,000 mls @ 125 mls/hr IV .Q8H [facility] Last Admin: 02/07/18 21:30 Dose: 125 mls/hr Ceftriaxone Sodium (Rocephin) 1 gm in 50 mls @ 100 mls/hr IV Q24 [facility] Last Admin: 02/07/18 09:14 Dose: 100 mls/hr Azithromycin 500 mg/ Dextrose 255 mls @ 250 mls/hr IV Q24 [facility] Last Admin: 02/07/18 10:20 Dose: 250 mls/hr Lactulose (Chronulac, Cephulac) 10 gm PO DAILY PRN PRN Reason: Constipation Last Admin: 02/07/18 10:20 Dose: 10 gm Lactulose (Chronulac, Cephulac) 20 gm PO Q1H PRN PRN PRN Reason: Constipation Last Admin: 02/07/18 23:13 Dose: 20 gm Magnesium Hydroxide (Milk Of Magnesia) 30 ml PO DAILY PRN PRN Reason: Constipation Last Admin: 02/07/18 14:17 Dose: 30 ml Morphine Sulfate () 2 mg IV Q2H PRN PRN PRN Reason: SEVERE PAIN (6-10/10) Last Admin: 02/07/18 16:29 Dose: 2 mg Ondansetron HCl (Zofran) 4 mg IV Q4H PRN PRN PRN Reason: nausea/vomiting Last Admin: 02/08/18 02:15 Dose: 4 mg Sodium Chloride () 5 - 30 ml IV UD PRN PRN Reason: SALINE FLUSH Last Admin: 02/08/18 02:15 Dose: 10 ml Medical Necessity - Tobacco Use Smoking Status: Never smoker Tobacco Use: Non-smoker Assessment/Plan All Active Problems (Last Updated 02/06/18 @ 16:47 by Kevin Martinez DO) Left ureteral calculus (Acute) Dyspnea (Acute) Sepsis (Acute) UTI (urinary tract infection) (Acute) Patient is a 77-year-old gentleman admitted with sepsis secondary to complicated UTI as a result of kidney stones 1. Sepsis secondary to complicated UTI in the context of kidney stones. Admitted to regular nursing floor cultures since started on Cipro 2. Nephrolithiasis patient was noted to have left kidney stone for which he underwent extraction by urology 3. Acute dyspnea secondary to community-acquired pneumonia chest x-ray did demonstrate cardiomegaly with bibasilar infiltrate CT of the chest without contrast ordered for further evaluation also did obtain a 2D echo. CT demonstrated Infiltrates in both lower lobes as well as in the right upper lobe and lingular segments of the left upper lobe. Revealed ejection fraction of 65% 4. Hypertension-blood pressure controlled, home medications continued with dose adjustment as needed 5. Acute on chronic kidney disease III patient kidney function worsened following admission on IV fluids with monitoring of electrolyte 6. DVT prophylaxis SCDs Active Medications Acetaminophen (Tylenol) 650 mg PO Q4H PRN PRN PRN Reason: PAIN Last Admin: 02/07/18 21:30 Dose: 650 mg Albuterol Sulfate (Ventolin Aerosols) 2.5 mg INHALATION Q2H PRN PRN PRN Reason: SHORTNESS OF BREATH Aspirin (Aspirin, Baby) 81 mg PO DAILY@0800 [facility] Last Admin: 02/07/18 09:12 Dose: 81 mg Atenolol (Tenormin (Beta Seth)) 50 mg PO DAILY [facility] Last Admin: 02/07/18 09:12 Dose: 50 mg Bisacodyl (Dulcolax) 10 mg RECTAL DAILY [facility] Last Admin: 02/07/18 18:50 Dose: 10 mg Doxazosin Mesylate (Cardura) 8 mg PO DAILY@1700 [facility] Last Admin: 02/07/18 16:24 Dose: 8 mg Sodium Chloride () 1,000 mls @ 125 mls/hr IV .Q8H [facility] Last Admin: 02/07/18 21:30 Dose: 125 mls/hr Ceftriaxone Sodium (Rocephin) 1 gm in 50 mls @ 100 mls/hr IV Q24 [facility] Last Admin: 02/07/18 09:14 Dose: 100 mls/hr Azithromycin 500 mg/ Dextrose 255 mls @ 250 mls/hr IV Q24 [facility] Last Admin: 02/07/18 10:20 Dose: 250 mls/hr Lactulose (Chronulac, Cephulac) 10 gm PO DAILY PRN PRN Reason: Constipation Last Admin: 02/07/18 10:20 Dose: 10 gm Lactulose (Chronulac, Cephulac) 20 gm PO Q1H PRN PRN PRN Reason: Constipation Last Admin: 02/07/18 23:13 Dose: 20 gm Magnesium Hydroxide (Milk Of Magnesia) 30 ml PO DAILY PRN PRN Reason: Constipation Last Admin: 02/07/18 14:17 Dose: 30 ml Morphine Sulfate () 2 mg IV Q2H PRN PRN PRN Reason: SEVERE PAIN (6-10/10) Last Admin: 02/07/18 16:29 Dose: 2 mg Ondansetron HCl (Zofran) 4 mg IV Q4H PRN PRN PRN Reason: nausea/vomiting Last Admin: 02/08/18 02:15 Dose: 4 mg Sodium Chloride () 5 - 30 ml IV UD PRN PRN Reason: SALINE FLUSH Last Admin: 02/08/18 02:15 Dose: 10 ml Clinical Impression(s) from Imaging Studies Chest X-Ray 02/06/18 16:09 IMPRESSION: Cardiomegaly with bibasilar infiltrates. Electronically Signed: Jens Linares DO at 20:50 EDT Tel [phone], Service support , Chest CT 02/07/18 07:39 IMPRESSION: Infiltrates in both lower lobes as well as in the right upper lobe and lingular segments of the left upper lobe. Electronically Signed: Santiago Ledesma MD at 8:48 EDT Tel [phone], Service support , Abdomen/Pelvis CT 02/08/18 02:11 IMPRESSION: New significant colonic distention since previous examination without abrupt caliber change, wall or fold thickening to suggest an inflammatory process. Mild increase of air distention of small bowel without abrupt caliber change. Findings could represent intestinal ileus. There is no appendicitis, diverticulitis, ascites, abscess, collection, perforation, colonic or small bowel obstruction. Air in the nondependent left collecting system with interval resolution of previous obstructing left ureteral calculus may be due to iatrogenic etiology. If there was no instrumentation in the recent past, consider gas producing bacteria/agents. Stable hepatic steatosis, cholecystectomy, fatty replaced pancreas, bilateral perirenal stranding, renal lesions some of which are indeterminate, hiatal hernia, colonic diverticulosis, arteriosclerosis, prostate enlargement, degenerative changes, fat-containing ventral hernias. Electronically Signed: Delia Whelan MD at 5:45 EDT , Service support , Code Visit Inpatient E&M: 00175 Subs Hosp L3
--- NOTE | 2018-02-08 07:51 | PCM.PN.BLA ---
Progress Note 77-year-old male status post laser removal of the stone no stent was placed clinically is doing better, he tells me he has a pneumonia. From urology standpoint I think he can be discharged we will see what hospitalist service once to do. For now we will hold on discharge to cleared by hospitalist or let hospitalist discharge patient.
[2018-02-08] MEDS: Ceftriaxone 1 GM/50 ML BAG IV (09:16)
[2018-02-08] MEDS: 0.9% Normal Saline 1,000 ML 125 ML IV ×2 (09:17→21:26)
[2018-02-08 09:22] VITALS: BP 139/64; PULSE 68; RESP 18; TEMP 37; O2SAT 95
[2018-02-08] MEDS: Aspirin 81 MG TAB.CHEW PO (09:28)
[2018-02-08] MEDS: Atenolol 50 MG Tablet PO (09:28)
[2018-02-08 14:43] VITALS: BP 139/64; PULSE 75; RESP 18; TEMP 37; O2SAT 96
[2018-02-08] MEDS: Doxazosin 4 MG Tablet 8 MG PO (17:12)
[2018-02-08] MEDS: Acetaminophen 325 MG Tablet 650 MG PO ×2 (19:00→23:34)
[2018-02-08 21:20] VITALS: BP 148/71; PULSE 70; RESP 16; TEMP 37.2; O2SAT 97
[2018-02-09 03:41] VITALS: BP 151/74; PULSE 71; RESP 16; TEMP 36.9; O2SAT 97
[2018-02-09] MEDS: Acetaminophen 325 MG Tablet 650 MG PO (03:43)
[2018-02-09] MEDS: 0.9% Normal Saline 1,000 ML 125 ML IV (05:09)
[2018-02-09 06:13] LABS: Hematocrit 27.5 % (40-54); Hemoglobin 9.1 g/dl (13.0-16.5); Mean Corp Hgb Conc 33.1 g/gl (32-36); Mean Corpuscular Hgb 30.1 pg (27.0-32.0); Mean Corpuscular Volume 91.1 fL (80-94); Mean Platelet Vol. 10.6 fl (6.2-12.0); Platelet Count 120 K/mm3 (150-450); RBC Distribution Width CV 13.7 % (11.6-14.6); RBC Distribution Width SD 45.4 fl (35.1-43.9); Red Blood Count 3.02 M/mm3 (4.6-6.2); White Blood Count 6.5 K/mm3 (4.4-11.0)
[2018-02-09 06:19] LABS: Scan Indicated on CBC? Y/N NO
[2018-02-09 06:21] LABS: Anion Gap 9 (5-15); BUN 29 mg/dL (7-18); BUN/Creat Ratio 13.4 RATIO (10-20); Chloride 108 mmol/L (98-107); Creatinine, Serum 2.17 mg/dL (0.70-1.30); EST Glomerular Filtration Rate 31 mL/min (>60); Est Glom Filt Rate - Afr Amer 38 mL/min (>60); Estimated Creatinine Clearance 28.51 ml/min; Glucose 85 mg/dL (74-106); Potassium 3.7 mmol/L (3.5-5.1); Sodium Level 140 mmol/L (136-145)
--- NOTE | 2018-02-09 08:16 | DCINST_ITS ---
- Discharge Diagnoses Current Active Problems: Current Active and Chronic Problems (Last Updated 02/06/18 @ 16:47 by Kevin Martinez DO) Left ureteral calculus (Acute) Dyspnea (Acute) Sepsis (Acute) UTI (urinary tract infection) (Acute) You will use the following diet at home:: No restrictions Discharge Activity: May not drive while taking narcotic pain medications. Allergies/Adverse Reactions: Allergies lisinopril Adverse Reaction (Verified 02/05/18 18:56) Other COUGH Sulfa (Sulfonamide Antibiotics) Adverse Reaction (Verified 02/05/18 18:56) Itching Medications to take at Discharge Aspirin [Aspirin, Baby] 81 mg PO DAILY 09/17/17 Atenolol [Tenormin (beta sona)] 50 mg PO DAILY 09/17/17 Oxycodone HCl/Acetaminophen [Percocet 5-325] 1 tab PO Q6H PRN PRN 3 Days #12 tab 02/02/18 Terazosin HCl 10 mg PO QHS 02/02/18 Cefdinir [Omnicef [equiv]] 300 mg PO Q12H #14 cap 02/09/18 Senna/Docusate Sodium [Senokot-S] 1 tab PO DAILY #30 tab 02/09/18 The following prescriptions were given: Cefdinir [Omnicef [equiv]] 300 mg PO Q12H #14 cap Senna/Docusate Sodium [Senokot-S] 1 tab PO DAILY #30 tab Primary Care Physician: Zaheer Jeffries III, MD [Primary Care Provider] - Please follow up with your Primary Care Physician in: for repeat BMP on 02/12/19 Test Results: Test results from this visit will be discussed in further detail at your follow- up appointment, if applicable. Please Follow Up With: José Miguel Rodriguez MD When: as scheduled Proposed Discharge Date: 02/09/18
[2018-02-09 08:30] VITALS: BP 145/52; PULSE 66; RESP 18; TEMP 36.9; O2SAT 97
[2018-02-09] MEDS: Aspirin 81 MG TAB.CHEW PO (08:48)
[2018-02-09] MEDS: Atenolol 50 MG Tablet PO (08:48)
--- NOTE | 2018-02-09 09:01 | PN_ITS ---
Patient Problems: Active and Suspected Problems (Last Updated 02/06/18 @ 16:47 by Kevin Martinez DO ) Left ureteral calculus (Acute) Dyspnea (Acute) Sepsis (Acute) UTI (urinary tract infection) (Acute) Subjective: Patient seen requested to be discharged. Discharge med rec and instructions completed Objective: GENERAL: cooperative. HEENT: Clear conjunctiva, moist oral mucosa NECK; supple, normal thyroid, no distended JVD. CHEST: Diminished to auscultation bilaterally, HEART: Regular S1 S2, no audible murmurs ABDOMEN: soft, non-tender, normoactive bowel sounds, RECTAL: deferred EXTREMITIES: No edema, no clubbing, no cyanosis. 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 SKIN: No Rash Vitals/I&O's: Vital Signs Temp Pulse Resp BP Pulse Ox 98.4 F 66 18 145/52 H 97 02/09/18 08:30 02/09/18 08:30 02/09/18 08:30 02/09/18 08:30 02/09/18 08:30 Oxygen Flow Rate (L/min) 2 Oxygen Delivery Method Room Air Intake and Output for Last 24 Hours 02/07/18 02/08/18 02/09/18 23:59 23:59 23:59 Intake Total 2150 / 2150 6903 / 6903 881 / 881 Output Total 600 / 600 2700 / 2700 1300 / 1300 Balance 1550 / 1550 4203 / 4203 -419 / -419 Microbiology Past 72 Hours 02/06/18 17:27 Blood Culture (Wb) #2 - Anticubital Left Blood Culture - Preliminary No growth in 48 hours. 02/06/18 17:27 Blood Culture (Wb) - Right Hand Blood Culture - Preliminary No growth in 48 hours. Laboratory Results 02/09/18 05:35: WBC 6.5, RBC 3.02 L, Hgb 9.1 L, Hct 27.5 L, MCV 91.1, MCH 30.1, MCHC 33.1, RDW 13.7, RDW Differential 45.4 H, Plt Count 120 L, MPV 10.6 02/09/18 05:35: Sodium 140, Potassium 3.7, Chloride 108 H, Carbon Dioxide 23.0, Anion Gap 9, BUN 29 H, Creatinine 2.17 H, Estim Creat Clear Calc 28.51, Est GFR (MDRD) Af Amer 38 L, Est GFR (MDRD) Non-Af 31 L, BUN/Creatinine Ratio 13.4, Glucose 85, Calcium 8.0 L Current Medications Acetaminophen (Tylenol) 650 mg PO Q4H PRN PRN PRN Reason: PAIN Last Admin: 02/09/18 03:43 Dose: 650 mg Albuterol Sulfate (Ventolin Aerosols) 2.5 mg INHALATION Q2H PRN PRN PRN Reason: SHORTNESS OF BREATH Aspirin (Aspirin, Baby) 81 mg PO DAILY@0800 [facility] Last Admin: 02/09/18 08:48 Dose: 81 mg Atenolol (Tenormin (Beta Seth)) 50 mg PO DAILY [facility] Last Admin: 02/09/18 08:48 Dose: 50 mg Bisacodyl (Dulcolax) 10 mg RECTAL DAILY [facility] Last Admin: 02/09/18 08:43 Dose: Not Given Calcium Carbonate (Tums) 1,000 mg PO Q6H PRN PRN PRN Reason: INDIGESTION Doxazosin Mesylate (Cardura) 8 mg PO DAILY@1700 [facility] Last Admin: 02/08/18 17:12 Dose: 8 mg Sodium Chloride () 1,000 mls @ 125 mls/hr IV .Q8H [facility] Last Admin: 02/09/18 05:09 Dose: 125 mls/hr Ceftriaxone Sodium (Rocephin) 1 gm in 50 mls @ 100 mls/hr IV Q24 [facility] Last Admin: 02/08/18 09:16 Dose: 100 mls/hr Azithromycin 500 mg/ Dextrose 255 mls @ 250 mls/hr IV Q24 [facility] Last Admin: 02/09/18 08:53 Dose: 250 mls/hr Lactulose (Chronulac, Cephulac) 10 gm PO DAILY PRN PRN Reason: Constipation Last Admin: 02/07/18 10:20 Dose: 10 gm Lactulose (Chronulac, Cephulac) 20 gm PO Q1H PRN PRN PRN Reason: Constipation Last Admin: 02/07/18 23:13 Dose: 20 gm Magnesium Citrate (Citrate Of Magnesia) 300 ml PO X1 ONE Stop: 02/09/18 09:00 Magnesium Hydroxide (Milk Of Magnesia) 30 ml PO DAILY PRN PRN Reason: Constipation Last Admin: 02/07/18 14:17 Dose: 30 ml Morphine Sulfate () 2 mg IV Q2H PRN PRN PRN Reason: SEVERE PAIN (6-10/10) Last Admin: 02/07/18 16:29 Dose: 2 mg Ondansetron HCl (Zofran) 4 mg IV Q4H PRN PRN PRN Reason: nausea/vomiting Last Admin: 02/08/18 02:15 Dose: 4 mg Sodium Chloride () 5 - 30 ml IV UD PRN PRN Reason: SALINE FLUSH Last Admin: 02/08/18 18:40 Dose: 10 ml Medical Necessity - Tobacco Use Smoking Status: Never smoker Tobacco Use: Non-smoker Assessment/Plan All Active Problems (Last Updated 02/06/18 @ 16:47 by Kevin Martinez DO) Left ureteral calculus (Acute) Dyspnea (Acute) Sepsis (Acute) UTI (urinary tract infection) (Acute) Patient is a 77-year-old gentleman admitted with sepsis secondary to complicated UTI as a result of kidney stones 1. Sepsis secondary to complicated UTI in the context of kidney stones. Admitted to regular nursing floor cultures since started on Cipro 2. Nephrolithiasis patient was noted to have left kidney stone for which he underwent extraction by urology 3. Acute dyspnea secondary to community-acquired pneumonia chest x-ray did demonstrate cardiomegaly with bibasilar infiltrate CT of the chest without contrast ordered for further evaluation also did obtain a 2D echo. CT demonstrated Infiltrates in both lower lobes as well as in the right upper lobe and lingular segments of the left upper lobe. Revealed ejection fraction of 65% the patient was discharged home on cefdinir 4. Hypertension-blood pressure controlled, home medications continued with dose adjustment as needed 5. RAKESH possibly related to ATN from patient underlying sepsis. Managed with IV fluids instructed to follow-up with his primary care physician Dr. Zaheer Jeffries iii to have repeat BMP to be performed on 02/12/2018 6. Chronic kidney disease III patient kidney function worsened following admission on IV fluids with monitoring of electrolyte 6. DVT prophylaxis SCDs Active Medications Acetaminophen (Tylenol) 650 mg PO Q4H PRN PRN PRN Reason: PAIN Last Admin: 02/07/18 21:30 Dose: 650 mg Albuterol Sulfate (Ventolin Aerosols) 2.5 mg INHALATION Q2H PRN PRN PRN Reason: SHORTNESS OF BREATH Aspirin (Aspirin, Baby) 81 mg PO DAILY@0800 [facility] Last Admin: 02/07/18 09:12 Dose: 81 mg Atenolol (Tenormin (Beta Seth)) 50 mg PO DAILY [facility] Last Admin: 02/07/18 09:12 Dose: 50 mg Bisacodyl (Dulcolax) 10 mg RECTAL DAILY [facility] Last Admin: 02/07/18 18:50 Dose: 10 mg Doxazosin Mesylate (Cardura) 8 mg PO DAILY@1700 [facility] Last Admin: 02/07/18 16:24 Dose: 8 mg Sodium Chloride () 1,000 mls @ 125 mls/hr IV .Q8H [facility] Last Admin: 02/07/18 21:30 Dose: 125 mls/hr Ceftriaxone Sodium (Rocephin) 1 gm in 50 mls @ 100 mls/hr IV Q24 [facility] Last Admin: 02/07/18 09:14 Dose: 100 mls/hr Azithromycin 500 mg/ Dextrose 255 mls @ 250 mls/hr IV Q24 [facility] Last Admin: 02/07/18 10:20 Dose: 250 mls/hr Lactulose (Chronulac, Cephulac) 10 gm PO DAILY PRN PRN Reason: Constipation Last Admin: 02/07/18 10:20 Dose: 10 gm Lactulose (Chronulac, Cephulac) 20 gm PO Q1H PRN PRN PRN Reason: Constipation Last Admin: 02/07/18 23:13 Dose: 20 gm Magnesium Hydroxide (Milk Of Magnesia) 30 ml PO DAILY PRN PRN Reason: Constipation Last Admin: 02/07/18 14:17 Dose: 30 ml Morphine Sulfate () 2 mg IV Q2H PRN PRN PRN Reason: SEVERE PAIN (6-10/10) Last Admin: 02/07/18 16:29 Dose: 2 mg Ondansetron HCl (Zofran) 4 mg IV Q4H PRN PRN PRN Reason: nausea/vomiting Last Admin: 02/08/18 02:15 Dose: 4 mg Sodium Chloride () 5 - 30 ml IV UD PRN PRN Reason: SALINE FLUSH Last Admin: 02/08/18 02:15 Dose: 10 ml Clinical Impression(s) from Imaging Studies Chest X-Ray 02/06/18 16:09 IMPRESSION: Cardiomegaly with bibasilar infiltrates. Electronically Signed: Jens Linares DO at 20:50 EDT Tel [phone], Service support , Chest CT 02/07/18 07:39 IMPRESSION: Infiltrates in both lower lobes as well as in the right upper lobe and lingular segments of the left upper lobe. Electronically Signed: Santiago Ledesma MD at 8:48 EDT Tel [phone], Service support , Abdomen/Pelvis CT 02/08/18 02:11 IMPRESSION: New significant colonic distention since previous examination without abrupt caliber change, wall or fold thickening to suggest an inflammatory process. Mild increase of air distention of small bowel without abrupt caliber change. Findings could represent intestinal ileus. There is no appendicitis, diverticulitis, ascites, abscess, collection, perforation, colonic or small bowel obstruction. Air in the nondependent left collecting system with interval resolution of previous obstructing left ureteral calculus may be due to iatrogenic etiology. If there was no instrumentation in the recent past, consider gas producing bacteria/agents. Stable hepatic steatosis, cholecystectomy, fatty replaced pancreas, bilateral perirenal stranding, renal lesions some of which are indeterminate, hiatal hernia, colonic diverticulosis, arteriosclerosis, prostate enlargement, degenerative changes, fat-containing ventral hernias. Electronically Signed: Delia Whelan MD at 5:45 EDT , Service support , Code Visit Inpatient E&M: 58645 Subs Hosp L2
[2018-02-09] MEDS: Ceftriaxone 1 GM/50 ML BAG IV (10:12)
[2018-02-09] MEDS: Magnesium Citrate 300 ML PO (10:16)
== END 2018-02-09 10:55 | disposition home or self-care (01) | DRG 856 ==
LOC: ED 20:55 → MS2 21:11
PROVIDERS: Anesthesiology; Admitting Provider Urology; Emergency Provider Emergency Medicine; Family Provider Family Medicine; PCP Family Medicine; Visit Provider Internal Medicine
PROC: 0TJ98ZZ Inspection of Ureter, Via Natural or Artificial Opening Endoscopic (ICD-10-PCS; CPT 52352; principal; 2018-02-06 09:20)
DX: T81.4XXA Infection following a procedure, initial encounter (principal); A41.9 Sepsis, unspecified organism; J18.9 Pneumonia, unspecified organism; N13.2 Hydronephrosis with renal and ureteral calculous obstruction; N39.0 Urinary tract infection, site not specified; N17.9 Acute kidney failure, unspecified; Z87.442 Personal history of urinary calculi; N36.2 Urethral caruncle; I12.9 Hypertensive chronic kidney disease with stage 1 through stage 4 chronic kidney disease, or unspecified chronic kidney disease; N18.3 Chronic kidney disease, stage 3 (moderate); I51.7 Cardiomegaly; Z79.82 Long term (current) use of aspirin; Z79.2 Long term (current) use of antibiotics; Z79.891 Long term (current) use of opiate analgesic; Z79.899 Other long term (current) drug therapy
CPT/HCPCS: 36415; 71045; 71250; 72148; 74018; 74176; 76000; 80048; 81001; 85025; 85027; 87040; 88300; 88305; 88341; 88342; 93005; 93306; 94667; 94668; 99282; J7030; A4216; C1769; J2405

== ENCOUNTER 2018-05-01 21:53 | Observation (INO) | payer MEDICARE, OTHER, SELFPAY ==
[2018-05-01 21:53] VITALS: BP 144/75; PULSE 91; RESP 16; TEMP 36.2; O2SAT 99; BMI 27.6
--- NOTE | 2018-05-01 22:02 | ED.RN ---
CLASSIFIER CALLED FOR EKG, PULLED OLD EKGS FOR
[2018-05-01 22:12] VITALS: BP 166/88; PULSE 84; RESP 16; O2SAT 97
--- NOTE | 2018-05-01 22:12 | EKG12_ITS ---
Test Reason : CP Blood Pressure : / mmHG Vent. Rate : 091 BPM Atrial Rate : 091 BPM P-R Int : 198 ms QRS Dur : 082 ms QT Int : 344 ms P-R-T Axes : 035 -19 015 degrees QTc Int : 423 ms Normal sinus rhythm with sinus arrhythmia Septal infarct , age undetermined Antro Inferior infarct , cannot be excluded Abnormal ECG Confirmed by JODY LUCAS, KORTNEY ([id number]), communications editor FRANCIA DOTY ([id number] on 05/03/2018 1:13:29 PM Referred By: KO/ABHISHEK Confirmed By:KORTNEY VERA MD
--- NOTE | 2018-05-01 22:15 | RAD_ITS ---
STUDY: X-RAY CHEST REASON FOR EXAM: Male, 77 years old. CHEST PAIN TECHNIQUE: Single frontal view of the chest. COMPARISON: February 06, 2018. FINDINGS: Chronic appearing increased interstitial lung markings. There is no demonstrated pleural abnormality. Normal heart size. Normal mediastinum and nain. Normal visualized pulmonary arteries. There is atherosclerotic calcification of the aortic arch with tortuosity. There are diffuse degenerative changes of the visualized thoracic spine. There is degenerative osteoarthritis of the bilateral shoulders. There is no demonstrated abnormality of the visualized soft tissue structures of the upper abdomen. RAD/Chest 1 View (Portable) IMPRESSION: There are no acute findings. Electronically Signed: Vernon Bartholomew MD at 22:28 EDT , Service support ,
[2018-05-01 22:21] VITALS: O2SAT 96
[2018-05-01 22:39] LABS: Absolute Lymphocyte Count 1.67 X10^3/ul (0.83-4.51); Absolute Neutrophil Count 4.8 X10^3/uL (2.0-7.7); Basophil# 0.02 X10^3/uL; Basophil% 0.3 % (0-1); Eosinophil# 0.07 X10^3/uL; Hematocrit 35.7 % (40-54); Hemoglobin 12.3 g/dl (13.0-16.5); Lymphocyte # 1.67 X10^3/ul (4.0); Lymphocyte % 23.4 % (19-41); Mean Corp Hgb Conc 34.5 g/gl (32-36); Mean Corpuscular Hgb 30.7 pg (27.0-32.0); Mean Platelet Vol. 10.3 fl (6.2-12.0); Monocyte# 0.53 X10^3/uL; Monocyte% 7.4 % (0-10); Neutrophil # 4.83 X10^3/uL (2.7-7.7); Neutrophil % 67.8 % (47-70); Platelet Count 162 K/mm3 (150-450); RBC Distribution Width SD 41.9 fl (35.1-43.9); Red Blood Count 4.01 M/mm3 (4.6-6.2); White Blood Count 7.1 K/mm3 (4.4-11.0)
[2018-05-01 22:40] LABS: POSITIVE COUNT NO; POSITIVE DIFFERENTIAL NO; POSITIVE MORPHOLOGY NO
[2018-05-01] MEDS: Aspirin 81 MG TAB.CHEW 162 MG PO (22:46)
[2018-05-01 23:04] LABS: Anion Gap 7 (5-15); BUN 21 mg/dL (7-18); BUN/Creat Ratio 15.2 RATIO (10-20); Chloride 106 mmol/L (98-107); Creatinine, Serum 1.38 mg/dL (0.70-1.30); EST Glomerular Filtration Rate 53 mL/min (>60); Est Glom Filt Rate - Afr Amer 64 mL/min (>60); Estimated Creatinine Clearance 44.83 ml/min; Glucose 103 mg/dL (74-106); Potassium 3.7 mmol/L (3.5-5.1); Sodium Level 141 mmol/L (136-145)
[2018-05-01 23:13] VITALS: BP 154/75; PULSE 64; RESP 14; O2SAT 97
--- NOTE | 2018-05-01 23:32 | ED.VISSUMM ---
- ER Visit Summary Date of Service: 05/01/18 Chief Complaint: [Chest pain] History of Present Illness: The patient is a 77 M [presents with a complaint of chest pain that started 3 or 4 hours ago. Patient was at rest when the pain started. Describes it as pressure lasting several minutes but he was lightheaded with it. Patient felt a little bit short of breath with it. Patient also states that he has been having lately more exertional dyspnea especially with walking up stairs where he has to stop and rest. Patient is currently pain-free. He does have a history of hypertension. Patient has no heart disease as far as he knows. He did have recent travel to [place] a month ago 4-1/[address] but they stopped frequently.] Physical Examination: [HEENT-PERRLA, EOMI. Cranial nerves II through XII grossly intact. TMs clear. Mucous membranes moist. No adenopathy. Cardiovascular-regular rate and rhythm without murmur or ectopy Lungs-clear to auscultation, chest wall stable without crepitus or subcu emphysema Abdomen-normoactive bowel sounds, soft, nontender, no rebound or rigidity, no peritoneal signs. 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 CBC with differential was normal. Chemistries were unremarkable. BUN was 21 creatinine 1.38. Troponin was less than 0.015. Chest x-ray showed nothing acute.] Emergency Department Course and Treatment: [Patient received aspirin in the emergency department.] Treatment Plan: [Admit for further workup and evaluation] Disposition: [Admit] Impression: [Chest pain-rule out acute coronary syndrome] This note was generated with [employer] software. It may contain incorrect words, spelling, and punctuation that were not noted in review of the chart prior to signing ED Disposition - Plan for ED Patient: Chief Complaint: Chest Pain Referrals: Zaheer Jeffries III, MD [Primary Care Provider] -
--- NOTE | 2018-05-01 23:35 | HP.PCM_ITS ---
Problem List (1) Chest pain Status: Acute History of Present Illness Date of Admission: 05/01/18 Chief Complaint: Chest pain The patient is a 77 year old M with a history of hypertension who was admitted through the ED on 05/01/2018 with a complaint of chest pain which started about 4 hours prior to presentation. Pain was left-sided, pressure-like, aggravated by exertion and mildly relieved by rest. He has associated lightheadedness and some exertional shortness of breath with pain. He has had a history of such chest pain in the past and states he had a stress test which was negative. Denies any history of DVT or PE and said he had had a recent long distance travel to [place] about a month ago which was about a 4-1/[address] but involved frequent stops. He denied any history of weight loss, any cough, fever chills, increased diaphoresis, abdominal pain, diarrhea vomiting. Review of systems otherwise negative. EKG done was negative for any acute ST changes and initial troponin was negative. He has been admitted to be worked up for chest pain. [] Past Medical History Medical History: Medical History (Last Updated 02/06/18 @ 16:47 by Kevin Martinez DO) Kidney stone N20.0 HTN (hypertension) I10 Allergies lisinopril Adverse Reaction (Verified 05/01/18 22:18) Other COUGH Sulfa (Sulfonamide Antibiotics) Adverse Reaction (Verified 05/01/18 22:18) Itching Home Medications: Ambulatory Orders Medication Instructions Recorded Aspirin [Aspirin, Baby] 81 mg PO DAILY 09/17/17 Atenolol [Tenormin (beta sona)] 50 mg PO DAILY 09/17/17 Terazosin HCl 10 mg PO QHS 02/02/18 Amlodipine [Norvasc] 5 mg PO DAILY 05/01/18 Hydrochlorothiazide 12.5 mg PO DAILY 05/01/18 Surgical History: noncontributory Psychiatric History: No pertinent psych hx Lives: With Family Smoking Status: Never smoker Tobacco Use: Non-smoker Alcohol: None Drugs: None - *Family History Maternal History Items: No pertinent history, - - no heart disease Review of Systems Constitutional: Denies: Chills, Fever, Malaise, Weakness, Weight Change, Fatigue HEENT: Denies: Head Aches, Sinus Congestion, Sinus Drainage Cardiovascular: Reports: Chest Pain, Chest Pressure. Denies: Claudication, Ches t Tightness, Edema, Heaviness, Light Headedness, Palpitations, Syncope Respiratory: Reports: Shortness of Breath, Shortness of breath upon exertion. Denies: Shortness of breath at rest, Sputum production, Wheezing Gastrointestinal: Denies: Abdominal Pain, Nausea, Vomiting Genitourinary: Denies: Dysuria Musculoskeletal: Denies: Foot Pain, Joint Pain, Joint Tenderness Skin: Denies: Rash, Wounds Neurological: Denies: Numbness, Tingling, Focal weakness Psychiatric: Denies: Anxiety, Depression, Homicidal Ideations, Suicidal Ideations Hematologic/ Lymphatic: Denies: Easy Bruising, Easy Bleeding VTE Information - Inpt Only VTE Present on Admission: No VTE Mechan Device Prophylaxis: None VTE Pharm Prophylaxis ordered?: Yes Patient Problems: Active and Suspected Problems (Last Updated 02/06/18 @ 16:47 by Kevin Martinez DO) Chest pain (Acute) - Physical Exam General: Alert, Oriented x3, Cooperative, No apparent distress HEENT: Atraumatic, PERRLA, EOMI, Normocephalic Oral: Moist Mucosa Neck: Supple, No JVD, Negative Carotid Bruits Lungs: Clear to auscultation, Normal air movement, No rhonchi, No wheeze, No rales Cardiovascular: Regular rate, Regular Rhythm, Normal S1, Normal S2, No murmurs Abdomen: Bowel Sounds Present, Soft, Non Tender, Non-Distended, No Hepato- splenomegaly Extremities: No clubbing, No cyanosis, No edema, Capillary Refill Less than 3 Seconds Skin: No rashes, No breakdown Musculoskeletal: No Tenderness to Palpation of Joints or Extremities Lymphatic: No Cervical, Supraclavicular, or Inguinal Adenopathy Neurological: Cranial nerves II-XII grossly intact, Neuro grossly intact, Motor Exam 5/5 strength throughout Psych/Mental Status: Normal Affect, Appropriate, Alert and oriented to time, place, person, mood and affect Vital Signs Temp Pulse Resp BP Pulse Ox 97.2 F L 64 14 154/75 H 97 05/01/18 21:53 05/01/18 23:13 05/01/18 23:13 05/01/18 23:13 05/01/18 23:13 Oxygen Delivery Method Room Air Weight: 187 lb Body Mass Index (BMI) 27.6 Laboratory Tests Past 24 Hrs 05/01/18 05/01/18 22:15 22:15 WBC 7.1 RBC 4.01 L Hgb 12.3 L Hct 35.7 L MCV 89.0 MCH 30.7 MCHC 34.5 RDW 13.0 RDW Differential 41.9 Plt Count 162 MPV 10.3 Immature Gran % (Auto) 0.100 Neut % (Auto) 67.8 Lymph % (Auto) 23.4 [place] % (Auto) 7.4 Eos % (Auto) 1.0 Baso % (Auto) 0.3 Absolute Neuts (auto) 4.8 Absolute Lymphs (auto) 1.67 Total Counted Not Reportable Sodium 141 Potassium 3.7 Chloride 106 Carbon Dioxide 28.0 Anion Gap 7 BUN 21 H Creatinine 1.38 H Estim Creat Clear Calc 44.83 Est GFR (MDRD) Af Amer 64 Est GFR (MDRD) Non-Af 53 L BUN/Creatinine Ratio 15.2 Glucose 103 Calcium 9.0 Troponin I < 0.015 Diagnostic Data Chest X-Ray 05/01/18 22:15 IMPRESSION: There are no acute findings. Electronically Signed: Vernon Bartholomew MD at 22:28 EDT , Service support , Assessment/Plan All Active Problems (Last Updated 02/06/18 @ 16:47 by Kevin Martinez DO) Left ureteral calculus (Acute) Dyspnea (Acute) Sepsis (Acute) UTI (urinary tract infection) (Acute) Chest pain (Acute) 77-year-old male presenting with a complaint of chest pain. 1. Typical cardiac chest pain, to rule out ACS * chest pain left-sided, pressure-like, aggravated by exertion and relieved by rest with associated exertional shortness of breath * had similar previous history of chest pain, and ACS was ruled out with negative stress test. * Admit to PCU with telemetry. * EKG showed no acute ST changes and chest x-ray showed no acute cardiopulmonary process. * Initial troponin negative, we will cycle * Stress test tomorrow morning. Patient states he had a stress test in [facility] many years ago which involved treadmill exercise. However he states that as part of the stress test, he had injection of her medication which she said was too speech is hard to palpate he had a severe reaction to it and says all he remembers next with the nurse holding tell to his face and saying do not leave me. He is unable to say what medication it was. * 2D echo done on 02/07/2018 showed EF of 65% with stage I diastolic dysfunction and no regional wall motion abnormalities noted. * keep NPO past midnight; to have stress test tomorrow morning. * aspirin 81mg daily, SL nitroglycerin 0.5mg prn * check lipid panel * 2. CKD 3 * CR is 1.38; baseline Cr ~ 1.4 3. Hypertension * Fairly controlled for age. on Amlodipine, atenolol, hydrochlorothiazide and terazosin. Will continue. * 4. History of sciatica: Stable. 5. DVT prophylaxis: Heparin CODE STATUS: Full code * Patient counseled about differences between full code, DNR CCA and DNR CCA. Patient elects to be full code. Total [id number] time: 60 minutes Code Visit Inpatient E&M: 47931 Init Hosp L3 Procedures: 84754 Advncd Care Plan 30 Min
[2018-05-02] VITALS (8 sets, daily range): BP systolic 130–152; BP diastolic 62–101; PULSE 56–79; RESP 16–20; TEMP 36.5–36.6; O2SAT 95–99; BMI 27.9; BMI 28.0
[2018-05-02 05:04] LABS: Absolute Neutrophil Count 3.8 X10^3/uL (2.0-7.7); Basophil# 0.02 X10^3/uL; Basophil% 0.3 % (0-1); Eosinophil# 0.11 X10^3/uL; Eosinophils% 1.8 % (0-5); Hematocrit 34.3 % (40-54); Hemoglobin 11.5 g/dl (13.0-16.5); Lymphocyte % 28.9 % (19-41); Mean Corp Hgb Conc 33.5 g/gl (32-36); Mean Corpuscular Hgb 29.9 pg (27.0-32.0); Mean Corpuscular Volume 89.1 fL (80-94); Mean Platelet Vol. 10.4 fl (6.2-12.0); Monocyte# 0.48 X10^3/uL; Monocyte% 7.7 % (0-10); Neutrophil % 61.1 % (47-70); Platelet Count 150 K/mm3 (150-450); RBC Distribution Width CV 13.1 % (11.6-14.6); Red Blood Count 3.85 M/mm3 (4.6-6.2); White Blood Count 6.2 K/mm3 (4.4-11.0)
[2018-05-02 05:12] LABS: International Normalized Ratio 1.1; Prothrombin Time (Protime)PT. 13.8 SECONDS (11.7-14.9)
[2018-05-02 05:13] LABS: Partial Thromboplast Time 31.8 Seconds (24.1-36.2)
[2018-05-02 05:21] LABS: POSITIVE COUNT NO; POSITIVE DIFFERENTIAL NO; POSITIVE MORPHOLOGY NO
[2018-05-02 05:23] LABS: Anion Gap 8 (5-15); BUN 20 mg/dL (7-18); Calcium,Total 8.8 mg/dL (8.5-10.1); Chloride 109 mmol/L (98-107); Cholesterol 130 mg/dL (200); Creatinine, Serum 1.33 mg/dL (0.70-1.30); EST Glomerular Filtration Rate 55 mL/min (>60); Est Glom Filt Rate - Afr Amer 67 mL/min (>60); Estimated Creatinine Clearance 46.51 ml/min; Glucose 92 mg/dL (74-106); High Density Lipoprotein 42 mg/dL; Potassium 3.8 mmol/L (3.5-5.1); Sodium Level 145 mmol/L (136-145); Triglycerides 80 mg/dL; Very Low Density Lipoprotein 16 mg/dL (5-40)
--- NOTE | 2018-05-02 05:30 | EKG12_ITS ---
Test Reason : CP REPEAT Blood Pressure : / mmHG Vent. Rate : 065 BPM Atrial Rate : 065 BPM P-R Int : 196 ms QRS Dur : 086 ms QT Int : 384 ms P-R-T Axes : 045 -24 004 degrees QTc Int : 399 ms Normal sinus rhythm Low voltage QRS (LIMB LEADS) Septal infarct , age undetermined Abnormal ECG Confirmed by JODY LUCAS, KORTNEY ([id number]), visual effects editor FRANCIA DOTY ([id number] on 05/03/2018 2:12:21 PM Referred By: COSME Confirmed By:KORTNEY VERA MD
--- NOTE | 2018-05-02 06:17 | STE_ITS ---
Reason For Study: Chest Pain Stress Results Protocol: Antoine Protocol Maximum Predicted HR: 143 bpm Target HR: 122 bpm% Max imum Predicted HR: 107 % DurationHeart Rate Stage (mm:ss) (bpm) BPCom ment Baseline 87 162/74 No Chest Pain Antoine Protocol Stage I 3:00 13 6 148/62No Chest Pain Antoine Protocol Stage II 3:00 15 3 172/60No Chest Pain Recovery 96 138/70 No Chest Pain Stress Duration: 6:00 mm:ss Maximum Stress HR: 153 bpmM ETS: 7 Baseline Echocardiogram Findings The estimated ejection fraction is 65 %. Stress Echo Wall motion Data Resting WMIntermediate WMStress WM Resting Wall Motion Wall Motion Stress No regional wall motion No regional wall motion abnormalities noted. abnormalities noted. EKG Data The baseline ECG displays normal sinus rhythm. The patient exercised according to the regular Antoine protocol for a total duration of 6:00. The maximum heart rate attained was 153 beats per minute. This was 106% of maximum predicted heart rate. The patient exercised into stage 3 of the Antoine protocol. During stress, there were no ST or T wave changes noted to suggest ischemia. No clinical angina was noted. Interpretation Summary The estimated ejection fraction is 65 %. Normal, adequate, treadmill echocardiogram. Negative for ischemia by EKG and echocardiographic criteria. No anginal symptoms noted. Rare PVCs noted. Appropriate blood pressure response to exercise. Below average exercise capacity for age. Test terminated due to dyspnea. Final LVEF is 75%. No complications. Ordering Physician: Taylor Stevens Referring Physician: Jb Romero Performed By: Shellie Rose RDCS
[2018-05-02] MEDS: Aspirin 81 MG TAB.CHEW PO (06:29)
[2018-05-02 07:34] LABS: Hemoglobin A1c 5.6 % (4.2-6.3)
[2018-05-02] MEDS: amLODIPine 5 MG Tablet PO (10:08)
[2018-05-02] MEDS: HYDROCHLOROTHIAZIDE 12.5 MG CAPSULE PO (10:08)
[2018-05-02] MEDS: Atenolol 50 MG Tablet PO (10:08)
--- NOTE | 2018-05-02 11:00 | DCINST_ITS ---
- Discharge Diagnoses Current Active Problems: Current Active and Chronic Problems (Last Updated 02/06/18 @ 16:47 by Kevin Martinez DO) Chest pain, non-cardiac etiology suspected, resolved, unclear exact etiology Hypertension CKD stage III History of Sciatica You will use the following diet at home:: Cardiac Your food should be the consistency of: Regular Your liquids should be the consistency of: Regular/Thin Discharge Activity: - - Advise slow resumption of activity. Please have evaluation per primary care prior to resumption of greater than moderate activity. If recurrent symptoms will need re-evaluation. Weight Bearing Status: Weight bearing as tolerated Call your doctor if you observe: Fever of 101 or Higher, Inability to urinate, Inability to have a bowel movement, Shortness of breath, Dizziness, Fainting spells, Chest pain, Uncontrolled pain Instructions: ED Chest Pain Atypical Unkn Cause, ED Chest Pain NonCardiac, ED HTN Established, Eating Heart-Healthy Food: Using the DASH Plan Allergies/Adverse Reactions: Allergies lisinopril Adverse Reaction (Verified 05/01/18 22:18) Other COUGH Sulfa (Sulfonamide Antibiotics) Adverse Reaction (Verified 05/01/18 22:18) Itching Medications to take at Discharge Aspirin [Aspirin, Baby] 81 mg PO DAILY 09/17/17 Atenolol [Tenormin (beta sona)] 50 mg PO DAILY 09/17/17 Amlodipine [Norvasc] 5 mg PO DAILY 05/01/18 Hydrochlorothiazide 12.5 mg PO DAILY 05/01/18 Terazosin HCl 5 mg PO QHS 05/02/18 Primary Care Physician: Zaheer Jeffries III, MD [Primary Care Provider] - Please follow up with your Primary Care Physician in: Follow-up with PCP within 3-5 days. Test Results: Test results from this visit will be discussed in further detail at your follow- up appointment, if applicable. Proposed Discharge Date: 05/02/18
--- NOTE | 2018-05-02 11:05 | DS.PCM_ITS ---
Discharge Date and Diagnosis - Problem List Patient Problems: Active and Suspected Problems (Last Updated 02/06/18 @ 16:47 by Kevin Martinez DO) Chest pain (Acute) Date of Admission: 05/01/18 Date of Discharge: 05/02/18 - Primary Discharge Diagnosis Active and Suspected Problems (Last Updated 02/06/18 @ 16:47 by Kevin Martinez DO) Chest pain, unclear exact etiology, normal stress testing, non-cardiac etiology suspected, resolved Hypertension CKD stage III History of Sciatica - Secondary Discharge Diagnosis Hypertension CKD stage III History of Sciatica Hospital Course and Treatment Imaging Results: 05/02/18 06:17 Stress Test Echo w/o Contrast [ECHO] Routine Operations: None Procedures: EKG, Stress test Summary of Care Provided: The patient is a 77 y/o M w/ PMHx:HTN, Overweight, CKD stage III, History of Sciatica, History of Nephrolithiasis, Recent history of PNA s/p treatment who presented to the [facility] ED on 05/01/18 with complaint of the onset of chest pain. In the ED work-up included EKG sinus rhythm without evidence of acute ischemia, CXR without acute process, unremarkable CBC and chemistry w/ stable BUN/Cr from baseline, cardiac enzyme set x 1 normal. The patient was admitted to [facility], maintained on cardiac telemetry, serial cardiac enzymes were obtained as well as serial EKGs which remained unremarkable. Patient underwent AM stress testing which was noted to be negative for inducible ischemia. He noted prior reaction to cardiac stress testing agent, unclear type, records attempted to be obtained but remote. FLP was obtained during admission and noted to be TG 80, TChol 130, LDL 72, VLDL 16, HDL 42. Patient was discharged to home in stable condition with recommendation for follow-up with primary care physician within 3-5 days. If recurrent chest discomfort recommended return to the ED for consideration cardiology assessment. DAY OF DISCHARGE PROGRESS NOTE: Subjective: Patient without acute event overnight per self and nursing report. Patient had no recurrent chest discomfort. He notes remote stress testing with similar symptoms that was unremarkable and notes he had severe reaction and passed out, unable to find records. Given this history w/ nuclear testing, stress ECHO was performed. Patient denies fever, chills, nausea, emesis, ab dominal pain, chest pain or dyspnea. Patient agreeable to discharge to home. Patient will be discharged with follow-up with primary care physician within 3-5 days. Objective: T 97.9, heart rate 79, BP 130/70, respiratory rate 15, 97% on room air. Physical Examination: General: awake, alert, oriented x 3 and cooperative, seated upright in the bed, NAD. Skin: normal color, turgor, no icterus, cyanosis. HEENT: AT/NC, EOMI, PERRLA, MMM. Lungs: CTA bilaterally, moderate effort, mild decrease BL bases, no rales, ronchi or wheezing; Heart: Regular rate and rhythm; no gallop, rub audible. Abdomen: soft, overweight, NTTP, ND, normal BS. Extremities: no cyanosis, clubbing, or edema. Neurological: patient awake, alert, oriented x 3; cognitive function appears intact upon questioning,; pupils equally reactive to light and accomodation; cranial nerves II-XII grossly normal, moving all 4 extremities, strength appropriate. Psychiatric: affect appears normal, no acute evidence of depressive or anxiety feelings. Assessment and Plan: Please see hospital summary above. Patient Problems: Active and Suspected Problems (Last Updated 02/06/18 @ 16:47 by Kevin Martinez DO) Chest pain (Acute) - Physical Exam Vital Signs Temp Pulse Resp BP Pulse Ox 97.7 F L 79 15 130/70 H 97 05/02/18 09:03 05/02/18 09:03 05/02/18 09:03 05/02/18 09:03 05/02/18 09:03 Oxygen Flow Rate (L/min) 97 Oxygen Delivery Method Room Air Weight: 189 lb 6.033 oz Body Mass Index (BMI) 27.9 Intake and Output for Last 24 Hours 04/30/18 05/01/18 05/02/18 23:59 23:59 23:59 Intake Total 0 / 0 Balance 0 / 0 Laboratory Tests Past 24 Hrs 05/01/18 05/01/18 05/02/18 22:15 22:15 01:17 WBC 7.1 RBC 4.01 L Hgb 12.3 L Hct 35.7 L MCV 89.0 MCH 30.7 MCHC 34.5 RDW 13.0 RDW Differential 41.9 Plt Count 162 MPV 10.3 Immature Gran % (Auto) 0.100 Neut % (Auto) 67.8 Lymph % (Auto) 23.4 [place] % (Auto) 7.4 Eos % (Auto) 1.0 Baso % (Auto) 0.3 Absolute Neuts (auto) 4.8 Absolute Lymphs (auto) 1.67 Total Counted Not Reportable PT INR APTT Sodium 141 Potassium 3.7 Chloride 106 Carbon Dioxide 28.0 Anion Gap 7 BUN 21 H Creatinine 1.38 H Estim Creat Clear Calc 44.83 Est GFR (MDRD) Af Amer 64 Est GFR (MDRD) Non-Af 53 L BUN/Creatinine Ratio 15.2 Glucose 103 Hemoglobin A1c Calcium 9.0 Troponin I < 0.015 < 0.015 Triglycerides Cholesterol LDL Cholesterol VLDL Cholesterol HDL Cholesterol 05/02/18 05/02/18 05/02/18 04:26 04:26 04:26 WBC 6.2 RBC 3.85 L Hgb 11.5 L Hct 34.3 L MCV 89.1 MCH 29.9 MCHC 33.5 RDW 13.1 RDW Differential 42.0 Plt Count 150 MPV 10.4 Immature Gran % (Auto) 0.200 Neut % (Auto) 61.1 Lymph % (Auto) 28.9 [place] % (Auto) 7.7 Eos % (Auto) 1.8 Baso % (Auto) 0.3 Absolute Neuts (auto) 3.8 Absolute Lymphs (auto) 1.80 Total Counted Not Reportable PT INR APTT Sodium 145 Potassium 3.8 Chloride 109 H Carbon Dioxide 28.0 Anion Gap 8 BUN 20 H Creatinine 1.33 H Estim Creat Clear Calc 46.51 Est GFR (MDRD) Af Amer 67 Est GFR (MDRD) Non-Af 55 L BUN/Creatinine Ratio 15.0 Glucose 92 Hemoglobin A1c 5.6 Calcium 8.8 Troponin I < 0.015 Triglycerides 80 Cholesterol 130 LDL Cholesterol 72 VLDL Cholesterol 16 HDL Cholesterol 42 05/02/18 04:26 WBC RBC Hgb Hct MCV MCH MCHC RDW RDW Differential Plt Count MPV Immature Gran % (Auto) Neut % (Auto) Lymph % (Auto) [place] % (Auto) Eos % (Auto) Baso % (Auto) Absolute Neuts (auto) Absolute Lymphs (auto) Total Counted PT 13.8 INR 1.1 APTT 31.8 Sodium Potassium Chloride Carbon Dioxide Anion Gap BUN Creatinine Estim Creat Clear Calc Est GFR (MDRD) Af Amer Est GFR (MDRD) Non-Af BUN/Creatinine Ratio Glucose Hemoglobin A1c Calcium Troponin I Triglycerides Cholesterol LDL Cholesterol VLDL Cholesterol HDL Cholesterol Discharge Activity: - - Advise slow resumption of activity. Please have evaluation per primary care prior to resumption of greater than moderate activity. If recurrent symptoms will need re-evaluation. Weight Bearing Status: Weight bearing as tolerated Call your doctor if you observe: Fever of 101 or Higher, Inability to urinate, Inability to have a bowel movement, Shortness of breath, Dizziness, Fainting spells, Chest pain, Uncontrolled pain Home Medications: Medications to take at Discharge Aspirin [Aspirin, Baby] 81 mg PO DAILY 09/17/17 Atenolol [Tenormin (beta sona)] 50 mg PO DAILY 09/17/17 Amlodipine [Norvasc] 5 mg PO DAILY 05/01/18 Hydrochlorothiazide 12.5 mg PO DAILY 05/01/18 Terazosin HCl 5 mg PO QHS 05/02/18 Primary Care Physician: Zaheer Jeffries III, MD [Primary Care Provider] - Please follow up with your Primary Care Physician in: Follow-up with PCP within 3-5 days. Patient Instructions: Eating Heart-Healthy Food: Using the DASH Plan, ED Chest Pain NonCardiac, ED Chest Pain Atypical Unkn Cause, ED HTN Established Disposition: Home Minutes spent on discharge:: 25 Patient Condition:: Fair Medical Necessity - Tobacco Use Smoking Status: Never smoker Tobacco Use: Non-smoker Meaningful Use Info Meaningful Use Diagnoses (Choose all that apply): None applicable Code Visit OBSV E&M: 08828 Observation care discharge
--- NOTE | 2018-05-02 11:36 | PHA.DC.MR ---
Pharmacy Service has performed discharge medication reconciliation for this patient. No new medications at time of discharge, home medications reviewed for issues. The patient's discharge medication list was reviewed for discrepancies and discrepancies were resolved.
--- NOTE | 2018-05-02 14:30 | NURSING ---
Read and reviewed SN documentation
== END 2018-05-02 10:58 | disposition home or self-care (01) ==
LOC: ED 22:42 → PCU 23:41
PROVIDERS: Admitting Provider Student in an Organized Health Care Education/Training Program; Emergency Provider Emergency Medicine; Family Provider Family Medicine; PCP Family Medicine; Visit Provider Family Medicine
DX: R07.9 Chest pain, unspecified (principal); I12.9 Hypertensive chronic kidney disease with stage 1 through stage 4 chronic kidney disease, or unspecified chronic kidney disease; N18.3 Chronic kidney disease, stage 3 (moderate); M54.30 Sciatica, unspecified side; Z79.899 Other long term (current) drug therapy; Z79.82 Long term (current) use of aspirin; Z23 Encounter for immunization
CPT/HCPCS: 36415; 71045; 80048; 80061; 83036; 84484; 85025; 85610; 85730; 93005; 93017; 93350; 99218; 99284; G0008; 90686; A4216; G0378

== ENCOUNTER 2019-04-17 14:04 | Emergency (ER) | payer MEDICARE, OTHER, SELFPAY ==
[2019-04-17 14:05] VITALS: BP 125/60; PULSE 58; RESP 16; TEMP 36.6; O2SAT 97; BMI 29.1
[2019-04-17 14:26] VITALS: BP 116/63; BP 128/68; BP 135/67; PULSE 58; PULSE 59
--- NOTE | 2019-04-17 14:26 | EKG12_ITS ---
Test Reason : SYNCOPE Blood Pressure : / mmHG Vent. Rate : 049 BPM Atrial Rate : 049 BPM P-R Int : 208 ms QRS Dur : 092 ms QT Int : 466 ms P-R-T Axes : 027 -34 -08 degrees QTc Int : 420 ms Sinus bradycardia Left axis deviation Possible Anterior infarct , age undetermined Abnormal ECG Confirmed by ERIC LUCAS, AMANDA ([id number]), supervising editor trailer KRIS WINCHESTER ([id number]) on 04/19/2019 10:24:00 A M Referred By: NIR Confirmed By:JOÃO REYES MD
--- NOTE | 2019-04-17 14:26 | RAD_ITS ---
STUDY: X-RAY CHEST REASON FOR EXAM: Male, 78 years old. Syncope TECHNIQUE: Frontal view of the chest COMPARISON: 05/01/2018 FINDINGS: The lungs are clear. There are no pleural effusions. There is no pneumothorax. The heart is normal in size. The visualized osseous structures are within normal limits. RAD/Chest 1 View (Portable) IMPRESSION: No acute thoracic pathology. Electronically Signed: Cruzito Vincent, at 14:46 EDT Tel , Service support ,
--- NOTE | 2019-04-17 14:28 | ED.DCSUM_ITS ---
- ER Visit Summary Date of Service: 04/17/19 Chief Complaint: Near syncope History of Present Illness: The patient is a 78 M history of anemia, kidney stone, hypertension and chronic pain due to sciatica. Patient states he was in his pain management doctors office. He was waiting to be seen and when they came in he realized that he needed to have a bowel movement. He said he held it for as long as he could and when he was going to go the bathroom he felt crampy abdominal pain and had a near syncopal event. And had a large bowel movement and felt better. Prior to the event he said he felt fine today no headache, no chest pain, no abdominal pain. Denies any nausea, vomiting or diarrhea. No dysuria. No fever. Denies any shortness of breath. And states he feels fine now. He said he did not completely lose consciousness. Physical Examination: Older male no acute distress vital signs stable afebrile. Initial blood pressure 125/60. Pulse ox 97% on room air no signs of hypoxia. HEENT exam normal. No facial droop. Normal speech. Neck nontender. Lungs clear to auscultation bilaterally. Heart regular rhythm rate about 60 no murmur. Chest were nontender. Abdomen soft and nontender. Normal bowel sounds. No peritoneal signs. No signs of obstruction. Patient is moving all 4 extremities. Neurovascularly intact. He is awake and alert. He has no focal motor deficits. Normal ios programmer strength. Normal dorsi and plantar flexion. Test Results: White count 6. Hemoglobin 11 which is his baseline chronic anemia. Electrolytes unremarkable gap is 6 BUN of 26 creatinine 1.35 which is his baseline renal insufficiency. Troponin normal. Chest x-ray portable one view shows no acute abnormality normal cardiac silhouette mediastinum read both by myself and the radiologist. EKG sinus bradycardia rate of 49 with no acute signs of UT or ischemia. Orthostatic vital signs were negative. Patient did ambulate to the bathroom and had no difficulty. Denied being lightheaded or dizzy. Emergency Department Course and Treatment: Older male with near syncopal event suspect secondary to vasovagal episode. He will have labs EKG performed. Clinically his exam is totally normal now and is feeling fine. Pt. at 1518 the patient is doing well. He has no complaints. And I discussed his heart rate and he states he often runs around this rate. It is not abnormal for him. I discussed this with his primary care physician Dr. Zaheer Jeffries and he states the patient's last 3 office visits his heart rate was basically between 51 and 55. Treatment Plan: Continue his current medications. Follow-up with his primary care physician. I have his primary care physician on page to discuss with him the patient prior to discharge Disposition: Discharge Impression: Acute vasovagal near syncope This note was generated with [employer] dictation software. It may contain incorrect words, spelling, and punctuation that were not noted in review of the chart prior to signing ED Disposition - Plan for ED Patient: Disposition: Home or Assisted Living Instructions: NEAR SYNCOPE, Unknown Referrals: Zaheer Jeffries III, MD [Primary Care Provider] - 3-5 Days Additional Instructions: Return to ER if you are feeling worse such as lightheaded, dizzy or like you are going to pass out.
[2019-04-17 14:32] LABS: Absolute Lymphocyte Count 1.57 X10^3/uL (0.83-4.51); Absolute Neutrophil Count 4.3 X10^3/uL (2.0-7.7); Basophil# 0.03 X10^3/uL; Basophil% 0.5 % (0-1); Eosinophils% 1.6 % (0-5); Hematocrit 33.5 % (40-54); Hemoglobin 11.1 g/dL (13.0-16.5); Lymphocyte # 1.57 X10^3/ul (4.0); Lymphocyte % 24.5 % (19-41); Mean Corp Hgb Conc 33.1 g/dL (32-36); Mean Corpuscular Volume 90.5 fL (80-94); Mean Platelet Vol. 10.4 fl (6.2-12.0); Monocyte# 0.38 X10^3/uL; Monocyte% 5.9 % (0-10); NRBC Flagged by Analyzer 0 % (0-5); Platelet Count 138 K/mm3 (150-450); RBC Distribution Width CV 13.1 % (11.6-14.6); RBC Distribution Width SD 42.8 fl (35.1-43.9); White Blood Count 6.4 K/mm3 (4.4-11.0)
[2019-04-17 14:46] LABS: Anion Gap 6 (5-15); BUN 26 mg/dL (7-18); BUN/Creat Ratio 19.3 RATIO (10-20); Calcium,Total 8.4 mg/dL (8.5-10.1); Chloride 109 mmol/L (98-107); Creatinine, Serum 1.35 mg/dL (0.70-1.30); EST Glomerular Filtration Rate 54 mL/min (>60); Est Glom Filt Rate - Afr Amer 66 mL/min (>60); Glucose 104 mg/dL (74-106); Potassium 3.7 mmol/L (3.5-5.1); Sodium Level 142 mmol/L (136-145)
[2019-04-17 15:05] VITALS: BP 120/60; PULSE 56; RESP 16; O2SAT 97
--- NOTE | 2019-04-17 15:21 | ED.DEP ---
ED Disposition - Plan for ED Patient: Disposition: Home or Assisted Living Instructions: NEAR SYNCOPE, Unknown Referrals: Zaheer Jeffries III, MD [Primary Care Provider] - 3-5 Days Additional Instructions: Return to ER if you are feeling worse such as lightheaded, dizzy or like you are going to pass out.
[2019-04-17 15:33] VITALS: BP 120/60; PULSE 56; RESP 16; O2SAT 97
== END 2019-04-17 15:37 | disposition home or self-care (01) ==
PROVIDERS: Emergency Provider Emergency Medicine; Family Provider Family Medicine; PCP Family Medicine
DX: R55 Syncope and collapse (principal); G89.29 Other chronic pain; I10 Essential (primary) hypertension; Z87.442 Personal history of urinary calculi; Z79.82 Long term (current) use of aspirin; Z79.899 Other long term (current) drug therapy
CPT/HCPCS: 71045; 80048; 84484; 85025; 93005; 99285; J7030; A4216

== ENCOUNTER → 2024-09-16 | Outpatient (CLI) | payer MEDICARE, OTHER, SELFPAY ==
--- NOTE | 2024-09-16 15:32 | RAD_ITS ---
PROCEDURE: KNEE 4 OR MORE VIEWS REASON FOR EXAM: Two-week history of left knee pain. TECHNIQUE: 4 view(s) of the left knee COMPARISON: None. FINDINGS: Moderate degree of joint space narrowing of the medial compartment of the knee joint with evidence of chondrocalcinosis of the medial and lateral menisci. This is suggestive of CPPD. No fracture. No suspicious bone lesion. Normal alignment. No effusion. Soft tissues are unremarkable. RAD/Knee 4 or More Views IMPRESSION: Degenerative changes of the medial compartment of the knee joint with calcifica tion of the medial and lateral menisci suggestive of CPPD. Reading Location: [facility]
== END | disposition home or self-care (01) ==
LOC: RAD 15:25
PROVIDERS: PCP Nurse Practitioner
DX: M25.562 Pain in left knee (principal)
CPT/HCPCS: 73564

== ENCOUNTER → 2024-11-13 | Outpatient (CLI) | payer MEDICARE, OTHER, SELFPAY ==
--- NOTE | 2024-11-13 14:28 | RAD_ITS ---
PROCEDURE: L/S SPINE MIN 4 VIEWS 11/13/2024 REASON FOR EXAM: RADICULOPATHY, LUMBOSACRAL REGION TECHNIQUE: Single 7 view of the lumbar spine FINDINGS: Vertebrae: No acute fracture. Discs: Advanced multilevel disc space narrowing with endplate osteophytes. Alignment: No subluxation. No subluxation on the flexion extension views to suggest instability. Mild dextroscoliosis centered at L2. Other: RAD/L/S Spine Min 4 Views IMPRESSION: Mild dextroscoliosis with degenerative disc disease. Reading Location: [id number]
== END | disposition home or self-care (01) ==
LOC: RAD 14:11
PROVIDERS: PCP Nurse Practitioner; Referring Provider Anesthesiology Pain Medicine; Visit Provider Anesthesiology Pain Medicine
DX: M54.17 Radiculopathy, lumbosacral region (principal)
CPT/HCPCS: 72110